=== PATIENT | male | born 1985 | race African-American/Black ===

== ENCOUNTER 2016-06-12 17:07 | Emergency (ER) | payer OTHER ==
[~2016-06-12] VITALS: Ht 172.7 cm; Wt 130.0 kg
[~2016-06-12 17:07] MED LIST: AMOX500T PO; HYDR10SO PO; ONDA4 PO; TIZA4 PO
[2016-06-12 17:13] VITALS: BP 156/94; PULSE 78; RESP 17; TEMP 97.9; O2SAT 98
[2016-06-12] MEDS ORDERED: ZANA4CAP PO (17:19)
[2016-06-12] MEDS ORDERED: HYDR-3533 PO (17:19)
--- NOTE | 2016-06-12 17:30 | PD ---
HPI Chief Complaint: Chest Pain Time Seen by Provider: 17:24 Travel History International Travel<30 days: No Contact w/Intl Traveler<30days: No Traveled to known affect area: No History of Present Illness HPI This 31-year-old male says he been having pain in his lower back. The pain is been going on for quite a while. He says that the last couple of days it seemed like pain shoots around the back of the front of the chest. Concerned that he might be having a heart attack. The pain is aggravated by deep breathing. He is not short of breath. His been coughing. 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 He is on Zanaflex and Lortab for his back pain. He's been having some anterior chest pain which is aggravated by movement PFSH Past Medical History Diminished Hearing: No Musculoskeletal: Yes (herniated disc) Tetanus Vaccination: > 5 Years Influenza Vaccination: No Past Surgical History Surgical History: No Previous Surgery Social History Alcohol Use: No Tobacco Use: No Substance Use: No Allergies-Medications (Allergen,Severity, Reaction): Coded Allergies: No Known Allergies (Unverified , 06/12/16) Reported Meds & Prescriptions Reported Meds & Active Scripts Active Reported Lortab (Hydrocodone-Acetaminophen) 5-325 Mg Tab Unknown Dose PO DIRECTED PRN Zanaflex (Tizanidine HCl) 4 Mg Cap 4 Mg PO Q8HR Review of Systems General / Constitutional: No: Fever, Chills Eyes: No: Diploplia, Blurred Vision HENT: No: Headaches, Vertigo Cardiovascular: Positive: Chest Pain or Discomfort Respiratory: Positive: Pleuritic Pain, No: Cough, Shortness of Breath Gastrointestinal: No: Vomiting, Diarrhea Genitourinary: No: Urgency Musculoskeletal: Positive: Pain Skin: No Rash Physical Exam Narrative GENERAL: Well-developed male SKIN: Warm and dry. HEAD: Atraumatic. Normocephalic. EYES: Pupils equal and round. No scleral icterus. No injection or drainage. ENT: No nasal bleeding or discharge. Mucous membranes pink and moist. NECK: Trachea midline. No JVD. CARDIOVASCULAR: Regular rate and rhythm. No murmur appreciated. RESPIRATORY: No accessory muscle use. Clear to auscultation. Breath sounds equal bilaterally. GASTROINTESTINAL: Abdomen soft, non-tender, nondistended. Hepatic and splenic margins not palpable. MUSCULOSKELETAL: No obvious deformities. No clubbing. No cyanosis. No edema. Some mild tenderness in the lower thoracic spine. He has tenderness of the left costochondral area NEUROLOGICAL: Awake and alert. No obvious cranial nerve deficits. Motor grossly within normal limits. Normal speech. PSYCHIATRIC: Appropriate mood and affect; insight and judgment normal. Data Data Last Documented VS Vital Signs Date Time Temp Pulse Resp B/P Pulse Ox O2 Delivery O2 Flow Rate FiO2 06/12/16 18:28 86 17 132/65 99 Room Air 06/12/16 17:13 97.9 Orders Electrocardiogram (06/12/16 17:24) Complete Blood Count With Diff (06/12/16 17:24) Basic Metabolic Panel (Bmp) (06/12/16 17:24) Troponin I (06/12/16 17:24) Chest, Single Ap (06/12/16 17:24) Spine, Thoracic-Ap/Lat/Sw(3vw) (06/12/16 17:24) Labs Laboratory Tests Test 06/12/16 17:55 White Blood Count 11.6 TH/MM3 Red Blood Count 4.63 MIL/MM3 Hemoglobin 14.0 GM/DL Hematocrit 42.1 % Mean Corpuscular Volume 90.9 FL Mean Corpuscular Hemoglobin 30.2 PG Mean Corpuscular Hemoglobin 33.2 % Concent Red Cell Distribution Width 12.3 % Platelet Count 399 TH/MM3 Mean Platelet Volume 7.3 FL Neutrophils (%) (Auto) 54.9 % Lymphocytes (%) (Auto) 32.7 % Monocytes (%) (Auto) 7.4 % Eosinophils (%) (Auto) 1.8 % Basophils (%) (Auto) 3.2 % Neutrophils # (Auto) 6.3 TH/MM3 Lymphocytes # (Auto) 3.8 TH/MM3 Monocytes # (Auto) 0.9 TH/MM3 Eosinophils # (Auto) 0.2 TH/MM3 Basophils # (Auto) 0.4 TH/MM3 CBC Comment DIFF FINAL Differential Comment Sodium Level 138 MEQ/L Potassium Level 3.8 MEQ/L Chloride Level 103 MEQ/L Carbon Dioxide Level 26.9 MEQ/L Anion Gap 8 MEQ/L Blood Urea Nitrogen 9 MG/DL Creatinine 0.97 MG/DL Estimat Glomerular Filtration 109 ML/MIN Rate Random Glucose 87 MG/DL Calcium Level 8.8 MG/DL Troponin I LESS THAN 0.02 NG/ML MDM Medical Decision Making Medical Screen Exam Complete: Yes Emergency Medical Condition: Yes Medical Record Reviewed: Yes Differential Diagnosis Differential includes coronary artery disease, chest wall pain Narrative Course EKG shows normal sinus rhythm. Troponin is normal. Chest x-ray and x-rays of the thoracic spine are normal. Patient is stable for discharge Diagnosis Primary Impression: Chest pain, musculoskeletal Additional Instructions: Continue Lortab and Zanaflex Disposition: 01 DISCHARGE HOME Condition: Stable Wiley Boudreaux MD Jun 12, 2016 17:30
[2016-06-12 18:07] LABS: AUTOMATED NEUTROPHIL # 6.3 TH/MM3 (1.8-7.7); BASOPHIL # 0.4 TH/MM3 (0-0.2); BASOPHIL % 3.2 % (0.0-2.0); EOSINOPHIL # 0.2 TH/MM3 (0-0.4); EOSINOPHIL % 1.8 % (0.0-4.0); HEMATOCRIT 42.1 % (39.0-51.0); HEMO FLAGS DIFF FINAL; LYMPH % 32.7 % (9.0-44.0); LYMPHOCYTE # 3.8 TH/MM3 (1.0-4.8); MEAN CELL VOLUME 90.9 FL (80.0-100.0); MEAN CORPUSCULAR HEMOGLOBIN 30.2 PG (27.0-34.0); MEAN CORPUSCULAR HGB CONC 33.2 % (32.0-36.0); MONO % 7.4 % (0.0-8.0); NEUT % 54.9 % (16.0-70.0); PLATELET COUNT 399 TH/MM3 (150-450); RED BLOOD COUNT 4.63 MIL/MM3 (4.50-5.90); RED CELL DISTRIBUTION WIDTH 12.3 % (11.6-17.2); WHITE BLOOD COUNT 11.6 TH/MM3 (4.0-11.0)
[2016-06-12 18:28] VITALS: BP 132/65; PULSE 86; RESP 17; O2SAT 99
[2016-06-12 18:28] LABS: CHLORIDE 103 MEQ/L (98-107); POTASSIUM 3.8 MEQ/L (3.5-5.1); SODIUM (NA) 138 MEQ/L (136-145)
--- NOTE | 2016-06-12 18:29 | RADHPO ---
EXAM DATE/TIME: 06/12/2016 17:32 [facility] COMPARISON: No previous studies available for comparison. INDICATIONS : Posterior chest pain. MEDICAL HISTORY : None. SURGICAL HISTORY : None. ENCOUNTER: Initial ACUITY: 1 day PAIN SCORE: 8/10 LOCATION: Bilateral posterior chest FINDINGS: A single view of the chest demonstrates the lungs to be symmetrically aerated without evidence of mas s, infiltrate or effusion. The cardiomediastinal contours are unremarkable. Osseous structures are intact. CONCLUSION: No acute disease. Jefe Ordaz MD on June 12, 2016 at 18:27 Board Certified Radiologist. This report was verified electronically.
[2016-06-12 18:31] LABS: ANION GAP 8 MEQ/L (5-15); BICARBONATE 26.9 MEQ/L (21.0-32.0); BLOOD UREA NITROGEN 9 MG/DL (7-18)
--- NOTE | 2016-06-12 18:32 | RADHPO ---
EXAM DATE/TIME: 06/12/2016 17:38 [facility] COMPARISON: SPINE THORACIC AP/LAT/SW (3VW), June 06, 2014, 15:27. INDICATIONS : Pain between scapulas irradiating into chest. MEDICAL HISTORY : None. SURGICAL HISTORY : None. ENCOUNTER: Initial ACUITY: 1 day PAIN SCORE: 8/10 LOCATION: Bilateral thoracic spine FINDINGS: There is normal alignment of the thoracic vertebral bodies. Vertebral body height is maintained. No evidence of fracture or subluxation. Pedicles are intact at all levels. The paravertebral reflecti ons are not thickened. CONCLUSION: No acute disease. Jefe Ordaz MD on June 12, 2016 at 18:30 Board Certified Radiologist. This report was verified electronically.
[2016-06-12 18:35] LABS: GLOMERULAR FILTRATION RATE 109 ML/MIN (>89)
[2016-06-12 19:20] VITALS: BP 177/92
--- NOTE | 2016-06-13 14:11 | EKG ---
Date Performed: 06/12/2016 Time Performed: 17:52:24 PTAGE: 31 years EKG: Sinus arrhythmia Septal T wave changes are nonspecific Borderline ECG NO PREVIOUS TRACING DOCTOR: Judson Haile Interpretating Date/Time 06/13/2016 14:09:54
== END 2016-06-12 19:28 | disposition home or self-care (01) ==
LOC: PHED 17:07
DX: R07.9 Chest pain, unspecified (principal); I49.8 Other specified cardiac arrhythmias; R05 Cough; M54.9 Dorsalgia, unspecified
CPT/HCPCS: 71010; 72072; 80048; 84484; 85025; 93005

== ENCOUNTER 2016-10-11 17:47 | Emergency (ER) | payer OTHER ==
[~2016-10-11] VITALS: Ht 170.2 cm; Wt 127.0 kg
[~2016-10-11 17:47] MED LIST changes: -AMOX500T PO; +HYDR-3533 PO; -HYDR10SO PO; -ONDA4 PO; -TIZA4 PO; +ZANA4CAP PO
[2016-10-11 17:49] VITALS: BP 194/97; PULSE 80; RESP 15; TEMP 97.8; O2SAT 98
[2016-10-11 18:02] VITALS: BP 151/97; PULSE 82; RESP 12; O2SAT 98
[2016-10-11] MEDS ORDERED: HYDR-3535 PO (18:05)
--- NOTE | 2016-10-11 18:33 | PD ---
HPI Chief Complaint: Chest Pain Time Seen by Provider: 18:33 Travel History International Travel<30 days: No Contact w/Intl Traveler<30days: No Traveled to known affect area: No History of Present Illness HPI 31-year-old male presents to the emergency department for evaluation of midsternal chest pain that started 3 days ago. Patient states the pain is intermittent. Patient states it is a cramping pain. Patient states he has chronic back pain. He states that when he gets a sharp pain in his back, it seems like pain shoots around the back to the front of the chest. He denies having this feeling before. Patient denies any vomiting. Fevers or chills. No hemoptysis. No recent travel or surgery. No leg edema. No history DVT/PE. Patient denies any cardiac history. Patient takes Lortab for chronic back pain, but no other medications. Patient does report the pain is worse with movement. He has no other complaints at this time. PFSH Past Medical History Diminished Hearing: No Musculoskeletal: Yes (herniated disc) Influenza Vaccination: No Past Surgical History Surgical History: No Previous Surgery Social History Alcohol Use: No Tobacco Use: No Substance Use: No Allergies-Medications (Allergen,Severity, Reaction): Coded Allergies: No Known Allergies (Unverified , 10/11/16) Reported Meds & Prescriptions Reported Meds & Active Scripts Active Reported Lortab (Hydrocodone-Acetaminophen) 10-325 Mg Tab 1 Tab PO Q6HR Review of Systems Except as stated in HPI: all other systems reviewed are Neg Physical Exam Narrative GENERAL: Well-nourished, well-developed male patient, ambulatory. Afebrile. SKIN: Focused skin assessment warm/dry. HEAD: Normocephalic. Atraumatic. EYES: No scleral icterus. No injection or drainage. NECK: Supple, trachea midline. No JVD or lymphadenopathy. CARDIOVASCULAR: Regular rate and rhythm without murmurs, gallops, or rubs. Bilateral radial and pedal pulses 2+. RESPIRATORY: Breath sounds equal bilaterally. No accessory muscle use. Lungs sounds are clear to auscultation. GASTROINTESTINAL: Abdomen soft, non-tender, nondistended. MUSCULOSKELETAL: No cyanosis, or edema. BACK: Nontender without obvious deformity. No CVA tenderness. Data Data Last Documented VS Vital Signs Date Time Temp Pulse Resp B/P Pulse Ox O2 Delivery O2 Flow Rate FiO2 5/14/17 19:26 83 16 170/79 99 10/11/16 18:02 Room Air 10/11/16 17:49 97.8 Orders Electrocardiogram (10/11/16 ) Basic Metabolic Panel (Bmp) (10/11/16 18:31) Ckmb (Isoenzyme) Profile (10/11/16 18:31) Complete Blood Count With Diff (10/11/16 18:31) Magnesium (Mg) (10/11/16 18:31) Troponin I (10/11/16 18:31) Chest, Single Ap (10/11/16 18:31) Ecg Monitoring (10/11/16 18:31) Bilateral Bp Monitoring (10/11/16 18:31) Iv Access Insert/Monitor (10/11/16 18:31) Oximetry (10/11/16 18:31) Oxygen Administration (10/11/16 18:31) Aspirin Chew (Aspirin Chew) (10/11/16 18:45) Sodium Chloride 0.9% Flush (Ns Flush) (10/11/16 18:45) Aspirin Chew (Aspirin Chew) (10/11/16 18:45) CKMB (10/11/16 18:38) CKMB% (10/11/16 18:38) Labs Laboratory Tests Test 10/11/16 18:38 White Blood Count 10.9 TH/MM3 Red Blood Count 4.47 MIL/MM3 Hemoglobin 13.9 GM/DL Hematocrit 41.0 % Mean Corpuscular Volume 91.7 FL Mean Corpuscular Hemoglobin 31.1 PG Mean Corpuscular Hemoglobin 33.9 % Concent Red Cell Distribution Width 13.0 % Platelet Count 372 TH/MM3 Mean Platelet Volume 7.6 FL Neutrophils (%) (Auto) 45.6 % Lymphocytes (%) (Auto) 42.0 % Monocytes (%) (Auto) 9.6 % Eosinophils (%) (Auto) 1.6 % Basophils (%) (Auto) 1.2 % Neutrophils # (Auto) 5.0 TH/MM3 Lymphocytes # (Auto) 4.6 TH/MM3 Monocytes # (Auto) 1.0 TH/MM3 Eosinophils # (Auto) 0.2 TH/MM3 Basophils # (Auto) 0.1 TH/MM3 CBC Comment DIFF FINAL Differential Comment Sodium Level 137 MEQ/L Potassium Level 3.7 MEQ/L Chloride Level 102 MEQ/L Carbon Dioxide Level 27.5 MEQ/L Anion Gap 8 MEQ/L Blood Urea Nitrogen 11 MG/DL Creatinine 0.99 MG/DL Estimat Glomerular Filtration 107 ML/MIN Rate Random Glucose 85 MG/DL Calcium Level 8.8 MG/DL Magnesium Level 2.3 MG/DL Total Creatine Kinase 283 U/L Creatine Kinase MB LESS THAN 0.5 NG/ML Troponin I LESS THAN 0.02 NG/ML MDM Medical Decision Making Medical Screen Exam Complete: Yes Emergency Medical Condition: Yes Medical Record Reviewed: Yes Interpretation(s) chest x-ray = CONCLUSION: Under aerated but clear. Differential Diagnosis Chest wall pain versus muscle strain versus muscle spasm versus ACS Narrative Course 31-year-old male presents to the emergency department for evaluation of midsternal chest pain that started 3 days ago and is intermittent. EKG shows sinus rhythm, heart rate 80, no acute ST changes. CBC, BMP, CK, troponin, magnesium, chest x-ray ordered and pending. Patient is given aspirin 324 mg by mouth. CBC shows no acute abnormality. BMP is unremarkable. CK is 283. Troponin is less than 0.02. Magnesium is 2.3. Chest x-ray is under aerated but clear. Symptoms are most consistent with musculoskeletal chest pain. However, the patient was seen in May with similar symptoms. I discussed with the patient and offered chest pain center admission for further evaluation of his chest pain. However, the patient has his 2 young children with him. He states he has nobody to watch them. He is chest pain-free and states he feels much better at this time. I instructed the patient that I would like him to stay, but he states that he cannot stay. He states that he will follow up outpatient with his primary care physician. He is to return for any acute worsening of symptoms. Patient verbalizes agreement and understanding. Diagnosis Primary Impression: Atypical chest pain Referrals: Jake Mooney MD call for appointment Deputy Jailer Primary Care Physician Patient Instructions: Chest Pain (ED), General Instructions Additional Instructions: I have offered admission to the chest pain center, but you are unable to stay. Please follow up with your primary care physician or a consumer loan manager for further evaluation. Return to the emergency department for any acute worsening of symptoms. Med/Other Pt SpecificInfo: No Change to Meds Disposition: 01 DISCHARGE HOME Condition: Stable Noel,Gladys [facility] October 11, 2016 18:33
[2016-10-11 18:44] LABS: BASOPHIL # 0.1 TH/MM3 (0-0.2); BASOPHIL % 1.2 % (0.0-2.0); EOSINOPHIL # 0.2 TH/MM3 (0-0.4); EOSINOPHIL % 1.6 % (0.0-4.0); HEMO FLAGS DIFF FINAL; LYMPHOCYTE # 4.6 TH/MM3 (1.0-4.8); MEAN CELL VOLUME 91.7 FL (80.0-100.0); MEAN CORPUSCULAR HEMOGLOBIN 31.1 PG (27.0-34.0); MEAN CORPUSCULAR HGB CONC 33.9 % (32.0-36.0); MONO % 9.6 % (0.0-8.0); NEUT % 45.6 % (16.0-70.0); PLATELET COUNT 372 TH/MM3 (150-450); RED BLOOD COUNT 4.47 MIL/MM3 (4.50-5.90); WHITE BLOOD COUNT 10.9 TH/MM3 (4.0-11.0)
[2016-10-11] MEDS ORDERED: SODIUM CHLORIDE 0.9% FLUSH 10 ML FLUSH IVF PRN (18:45)
[2016-10-11] MEDS ORDERED: ASPIRIN 81 MG CHEW TAB CHEW ONE (18:45)
[2016-10-11] MEDS ORDERED: ASPIRIN 81 MG CHEW TAB PO ONE (18:45)
--- NOTE | 2016-10-11 19:04 | RADRPT ---
EXAM DATE/TIME: 10/11/2016 18:57 [facility] COMPARISON: CHEST SINGLE AP, June 12, 2016, 17:32. INDICATIONS : Chest pain. MEDICAL HISTORY : None. SURGICAL HISTORY : None. ENCOUNTER: Initial ACUITY: 1 day PAIN SCORE: 0/10 LOCATION: Bilateral chest FINDINGS: The lungs are under aerated but clear. The heart and pulmonary vascularity are normal. The portion of the bony skeleton visualized is unremarkable. CONCLUSION: Under aerated but clear. Hiram Shrestha MD FACR on October 11, 2016 at 19:01 Board Certified Radiologist. This report was verified electronically.
[2016-10-11 19:26] VITALS: BP 170/79; PULSE 83; RESP 16; O2SAT 99
[2016-10-11 19:55] LABS: ANION GAP 8 MEQ/L (5-15); BICARBONATE 27.5 MEQ/L (21.0-32.0); BLOOD UREA NITROGEN 11 MG/DL (7-18); CHLORIDE 102 MEQ/L (98-107); GLOMERULAR FILTRATION RATE 107 ML/MIN (>89); MAGNESIUM 2.3 MG/DL (1.5-2.5); POTASSIUM 3.7 MEQ/L (3.5-5.1); SODIUM (NA) 137 MEQ/L (136-145)
[2016-10-11 20:00] LABS: CREATINE KINASE 283 U/L (39-308)
[2016-10-11 20:12] LABS: CKMB LESS THAN 0.5 NG/ML (0.5-3.6)
--- NOTE | 2016-10-12 14:45 | EKG ---
Date Performed: 10/11/2016 Time Performed: 18:00:31 PTAGE: 31 years EKG: Sinus rhythm NORMAL ECG Compared to prior tracing no significant change PREVIOUS TRACING : 06/12/2016 17.52 DOCTOR: Flynn Alford Interpretating Date/Time 10/12/2016 14:41:06
== END 2016-10-11 20:38 | disposition home or self-care (01) ==
LOC: NEPC 17:47
DX: R07.89 Other chest pain (principal)
CPT/HCPCS: 71010; 80048; 82550; 82552; 83735; 84484; 85025; 93005

== ENCOUNTER 2016-11-05 22:05 | Emergency (ER) | payer OTHER ==
[~2016-11-05] VITALS: Ht 172.7 cm; Wt 140.0 kg
[~2016-11-05 22:05] MED LIST changes: -HYDR-3533 PO; +HYDR-3535 PO; -ZANA4CAP PO
[2016-11-05 22:07] VITALS: BP 180/110; PULSE 119; RESP 20; TEMP 98.6; O2SAT 94
[2016-11-05] MEDS ORDERED: ASPIRIN 325 MG TAB PO ONE (22:30)
--- NOTE | 2016-11-05 22:38 | RADRPT ---
EXAM DATE/TIME: 11/05/2016 22:27 [facility] COMPARISON: CHEST SINGLE AP, October 11, 2016, 18:57. INDICATIONS : Chest pain MEDICAL HISTORY : None. SURGICAL HISTORY : None. ENCOUNTER: Initial ACUITY: 2 days PAIN SCORE: 9/10 LOCATION: Bilateral chest FINDINGS: A single view of the chest demonstrates the lungs to be symmetrically aerated without evidence of mas s, infiltrate or effusion. The cardiomediastinal contours are unremarkable. Osseous structures are intact. CONCLUSION: No acute disease. Jefe Quispe MD on November 05, 2016 at 22:36 Board Certified Radiologist. This report was verified electronically.
--- NOTE | 2016-11-05 22:40 | PD ---
HPI Chief Complaint: Pain: Acute or Chronic Time Seen by Provider: 22:36 Travel History International Travel<30 days: No Contact w/Intl Traveler<30days: No Traveled to known affect area: No History of Present Illness HPI 31-year-old male that presents to the ED for evaluation of left-sided chest pain. Per patient he believes that this is related more to his back to his chest. 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 Per patient when to have surgery on it. Per patient he takes Lortab chronically. Per patient she's been having some discomfort on his mid back since yesterday and today when he was driving with his children he developed a severe left-sided chest pain. Per patient the pain is debilitating causing him shortness of breath. He denies any injury. No falls. No allergies to medication. He did took his Lortab today. He denies any cardiac history. Patient denies any other symptoms. Per patient the pain is severe 10 out of 10. States mainly on the left side of the chest. Denies any nausea or vomiting abdominal pain. No urinary or bowel movement issues. PFSH Past Medical History Diminished Hearing: No Musculoskeletal: Yes (herniated disc) Tetanus Vaccination: < 5 Years Influenza Vaccination: No Past Surgical History Surgical History: No Previous Surgery Social History Alcohol Use: No Tobacco Use: No Substance Use: No Allergies-Medications (Allergen,Severity, Reaction): Coded Allergies: No Known Allergies (Unverified , 11/05/16) Reported Meds & Prescriptions Reported Meds & Active Scripts Active Reported Lortab (Hydrocodone-Acetaminophen) 10-325 Mg Tab 1 Tab PO Q6HR Review of Systems Except as stated in HPI: all other systems reviewed are Neg Physical Exam Narrative GENERAL: SKIN: Warm and dry. HEAD: Atraumatic. Normocephalic. EYES: Pupils equal and round. No scleral icterus. No injection or drainage. ENT: No nasal bleeding or discharge. Mucous membranes pink and moist. Tongue is midline. No uvula deviation. NECK: Trachea midline. No JVD. CARDIOVASCULAR: Regular rate and rhythm. No murmurs, S3, S4. Minimal discomfort noted with touch. RESPIRATORY: No accessory muscle use. Clear to auscultation. Breath sounds equal bilaterally. GASTROINTESTINAL: Abdomen soft, non-tender, nondistended. Hepatic and splenic margins not palpable. MUSCULOSKELETAL: Extremities without clubbing, cyanosis, or edema. No obvious deformities. Full range of motion of the upper and lower extremities bilaterally. 2+ pulses bilaterally. No lumbar, thoracic, cervical spine tenderness to palpation noted on exam. NEUROLOGICAL: Awake and alert. No obvious cranial nerve deficits. Motor grossly within normal limits. Five out of 5 muscle strength in the arms and legs. Normal speech. PSYCHIATRIC: Appropriate mood and affect; insight and judgment normal. Data Data Last Documented VS Vital Signs Date Time Temp Pulse Resp B/P Pulse Ox O2 Delivery O2 Flow Rate FiO2 11/05/16 22:07 98.6 119 20 180/110 94 Orders Electrocardiogram (11/05/16 22:17) Basic Metabolic Panel (Bmp) (11/05/16 22:17) Ckmb (Isoenzyme) Profile (11/05/16 22:17) Complete Blood Count With Diff (11/05/16 22:17) D-Dimer (11/05/16 22:17) Magnesium (Mg) (11/05/16 22:17) Prothrombin Time / Inr (Pt) (11/05/16 22:17) Act Partial Throm Time (Ptt) (11/05/16 22:17) Troponin I (11/05/16 22:17) Chest, Single Ap (11/05/16 22:17) Ecg Monitoring (11/05/16 22:17) Bilateral Bp Monitoring (11/05/16 22:17) Iv Access Insert/Monitor (11/05/16 22:17) Oximetry (11/05/16 22:17) Oxygen Administration (11/05/16 22:17) Aspirin (Aspirin) (11/05/16 22:30) Morphine Inj (Morphine Inj) (11/05/16 22:45) Ondansetron Inj (Zofran Inj) (11/05/16 22:45) MDM Medical Decision Making Medical Screen Exam Complete: Yes Emergency Medical Condition: Yes Medical Record Reviewed: Yes Differential Diagnosis ACS versus a typical chest pain versus chest pain versus chronic versus acute on chronic pain versus referred pain. Narrative Course 31-year-old male that presents to the ED for evaluation of left-sided chest pain. Patient was properly examined and was found to have signs and symptoms concerning for left-sided chest pain. Unclear etiology this time. Does appear to be more muscular. Patient has a history of this in the past. He has been here twice for evaluation of a typical chest pain. At this time a recommend labs and imaging to make sure patient is having acute disease. Patient was given IV pain medications. Case was signed to my attending pending labs and imaging results. Abiel Tanner Nov 05, 2016 22:40
[2016-11-05] MEDS ORDERED: ONDANSETRON HCL 4 MG/2 ML VIAL IV PUSH ONE (22:45)
[2016-11-05] MEDS ORDERED: MORPHINE SULFATE 4 MG/ML INJ IV PUSH ONE (22:45)
[2016-11-05 22:50] LABS: AUTOMATED NEUTROPHIL # 7.6 TH/MM3 (1.8-7.7); BASOPHIL # 0.1 TH/MM3 (0-0.2); BASOPHIL % 0.9 % (0.0-2.0); EOSINOPHIL # 0.1 TH/MM3 (0-0.4); EOSINOPHIL % 0.9 % (0.0-4.0); HEMATOCRIT 42.5 % (39.0-51.0); LYMPH % 35.9 % (9.0-44.0); LYMPHOCYTE # 5.2 TH/MM3 (1.0-4.8); MEAN CELL VOLUME 90.4 FL (80.0-100.0); MEAN CORPUSCULAR HEMOGLOBIN 31.5 PG (27.0-34.0); MEAN CORPUSCULAR HGB CONC 34.9 % (32.0-36.0); MONO % 9.5 % (0.0-8.0); NEUT % 52.8 % (16.0-70.0); PLATELET COUNT 396 TH/MM3 (150-450); RED BLOOD COUNT 4.71 MIL/MM3 (4.50-5.90); RED CELL DISTRIBUTION WIDTH 13.3 % (11.6-17.2); WHITE BLOOD COUNT 14.4 TH/MM3 (4.0-11.0)
[2016-11-05 22:53] LABS: HEMO FLAGS AUTO DIFF
[2016-11-05 23:06] LABS: ANION GAP 11 MEQ/L (5-15); BICARBONATE 25.4 MEQ/L (21.0-32.0); BLOOD UREA NITROGEN 10 MG/DL (7-18); CHLORIDE 101 MEQ/L (98-107); CREATINE KINASE 252 U/L (39-308); GLOMERULAR FILTRATION RATE 93 ML/MIN (>89); MAGNESIUM 2.2 MG/DL (1.5-2.5); POTASSIUM 4.1 MEQ/L (3.5-5.1); SODIUM (NA) 137 MEQ/L (136-145)
[2016-11-05 23:11] LABS: APTT (PATIENT) 29.7 SEC (24.3-30.1); PROTHROMBIN TIME - PATIENT 11.1 SEC (9.8-11.6)
[2016-11-05 23:19] LABS: CKMB LESS THAN 0.5 NG/ML (0.5-3.6)
[2016-11-05 23:22] LABS: EOSINOPHILS 1 % (0-4); NEUTROPHIL # MANUAL DIFF 7.2 TH/MM3 (1.8-7.7); POLYS (SEG NEUTROPHILS) 50 % (16-70); WBC DIFF SAMPLE 100
[2016-11-05 23:23] LABS: PLATELET ESTIMATE SMEAR NORMAL (NORMAL); PLATELET MORPHOLOGY NORMAL (NORMAL)
[2016-11-05 23:24] LABS: SCAN/DIFF FINAL DIFF MANUAL
[2016-11-05 23:44] VITALS: BP 197/88; PULSE 92; RESP 14; O2SAT 99
--- NOTE | 2016-11-06 00:07 | PD ---
Data Data Last Documented VS Vital Signs Date Time Temp Pulse Resp B/P Pulse Ox O2 Delivery O2 Flow Rate FiO2 11/05/16 23:44 92 14 197/88 99 Room Air 11/05/16 22:07 98.6 Orders Electrocardiogram (11/05/16 22:17) Basic Metabolic Panel (Bmp) (11/05/16 22:17) Ckmb (Isoenzyme) Profile (11/05/16 22:17) Complete Blood Count With Diff (11/05/16 22:17) D-Dimer (11/05/16 22:17) Magnesium (Mg) (11/05/16 22:17) Prothrombin Time / Inr (Pt) (11/05/16 22:17) Act Partial Throm Time (Ptt) (11/05/16 22:17) Troponin I (11/05/16 22:17) Chest, Single Ap (11/05/16 22:17) Ecg Monitoring (11/05/16 22:17) Bilateral Bp Monitoring (11/05/16 22:17) Iv Access Insert/Monitor (11/05/16 22:17) Oximetry (11/05/16 22:17) Oxygen Administration (11/05/16 22:17) Aspirin (Aspirin) (11/05/16 22:30) Morphine Inj (Morphine Inj) (11/05/16 22:45) Ondansetron Inj (Zofran Inj) (11/05/16 22:45) CKMB (11/05/16 22:35) CKMB% (11/05/16 22:35) Labs Laboratory Tests Test 11/05/16 22:35 White Blood Count 14.4 TH/MM3 Red Blood Count 4.71 MIL/MM3 Hemoglobin 14.8 GM/DL Hematocrit 42.5 % Mean Corpuscular Volume 90.4 FL Mean Corpuscular Hemoglobin 31.5 PG Mean Corpuscular Hemoglobin 34.9 % Concent Red Cell Distribution Width 13.3 % Platelet Count 396 TH/MM3 Mean Platelet Volume 7.2 FL Neutrophils (%) (Auto) 52.8 % Lymphocytes (%) (Auto) 35.9 % Monocytes (%) (Auto) 9.5 % Eosinophils (%) (Auto) 0.9 % Basophils (%) (Auto) 0.9 % Neutrophils # (Auto) 7.6 TH/MM3 Lymphocytes # (Auto) 5.2 TH/MM3 Monocytes # (Auto) 1.4 TH/MM3 Eosinophils # (Auto) 0.1 TH/MM3 Basophils # (Auto) 0.1 TH/MM3 CBC Comment AUTO DIFF Differential Total Cells 100 Counted Neutrophils % (Manual) 50 % Lymphocytes % 44 % Monocytes % 5 % Eosinophils % 1 % Neutrophils # (Manual) 7.2 TH/MM3 Differential Comment FINAL DIFF MANUAL Platelet Estimate NORMAL Platelet Morphology Comment NORMAL Red Cell Morphology Comment NORMAL Prothrombin Time 11.1 SEC Prothromb Time International 1.0 RATIO Ratio Activated Partial 29.7 SEC Thromboplast Time D-Dimer Quantitative (PE/DVT) LESS THAN 0.19 MG/L FEU Sodium Level 137 MEQ/L Potassium Level 4.1 MEQ/L Chloride Level 101 MEQ/L Carbon Dioxide Level 25.4 MEQ/L Anion Gap 11 MEQ/L Blood Urea Nitrogen 10 MG/DL Creatinine 1.12 MG/DL Estimat Glomerular Filtration 93 ML/MIN Rate Random Glucose 95 MG/DL Calcium Level 9.0 MG/DL Magnesium Level 2.2 MG/DL Total Creatine Kinase 252 U/L Creatine Kinase MB LESS THAN 0.5 NG/ML Troponin I LESS THAN 0.02 NG/ML [facility] Supervised Visit with MALISSA: Yes Interpretation(s) EKG shows sinus tachycardia rate of 116, normal axis normal R-wave progression. No concerning ST segment changes or T-wave abnormalities. Some normal EKG except for rate. Narrative Course Care assumed from Abiel Tanner [facility] at 2300. This is a 31-year-old male presents with atypical chest pain. Right-sided. On my exam patient states that his pain stems from chronic herniated disks in his thoracic and lumbar back. He states occasionally it spasms on him and causes him to feel chest pain. He denies any shortness of breath. Denies a smoking history denies any cocaine use. He is slightly overweight and seems to be his only risk factor. Initial workup including EKG troponin and d-dimer are negative. He is feeling much more comfortable on second evaluation his tachycardia has resolved without further intervention. He wishes to go home. Discussed he needs to follow up with his primary care physician of record for these iliac clinic and discussed return to ED criteria. Diagnosis Primary Impression: Atypical chest pain Referrals: [facility] Scripts Cyclobenzaprine (Flexeril)10 Mg Tab10 Mg PO TID #20 TAB Ref 0 Prov:Abdulaziz Starr MD 11/06/16 Disposition: 01 DISCHARGE HOME Condition: Stable Abdulaziz Starr MD Nov 06, 2016 00:07
[2016-11-06] MEDS ORDERED: CYCL1TAB29 PO (00:09)
--- NOTE | 2016-11-06 17:37 | EKG ---
Date Performed: 11/05/2016 Time Performed: 22:07:54 PTAGE: 31 years EKG: SINUS TACHYCARDIA POSSIBLE LEFT ATRIAL ENLARGEMENT NONSPECIFIC T-WAVE ABNORMALITY ABNORMAL RHYTHM ECG PREVIOUS TRACING : 10/11/2016 18.00 Compared to the previous tracing rate faster DOCTOR: Gloria Magaña Interpretating Date/Time 11/06/2016 17:36:09
== END 2016-11-06 00:36 | disposition home or self-care (01) ==
LOC: NEPC 22:05
DX: R07.89 Other chest pain (principal); M54.6 Pain in thoracic spine; R06.02 Shortness of breath; R00.0 Tachycardia, unspecified; R94.31 Abnormal electrocardiogram [ECG] [EKG]; Z87.39 Personal history of other diseases of the musculoskeletal system and connective tissue
CPT/HCPCS: 71010; 80048; 82550; 82552; 83735; 84484; 85007; 85027; 85379; 85610; 85730; 93005; 96374; 99285; J2405

== ENCOUNTER 2016-11-06 14:42 | Emergency (ER) | payer OTHER ==
[~2016-11-06 14:42] MED LIST changes: +CYCL1TAB29 PO
[2016-11-06 14:54] VITALS: BP 153/97; PULSE 94; RESP 18; TEMP 97.5; O2SAT 97
--- NOTE | 2016-11-06 15:13 | PD ---
HPI Chief Complaint: Chest Pain Time Seen by Provider: 15:01 Travel History International Travel<30 days: No Contact w/Intl Traveler<30days: No Traveled to known affect area: No History of Present Illness HPI Is a 31-year-old man who presents to the emergency department cleaning of chest pain. He's had multiple recent admissions for atypical chest pain. He's had workups including labs d-dimer is x-rays EKGs have all been unremarkable. He was seen last night for the same. He comes back in today saying he still is chest pain. He did fill the Lortab and just started taking it. Patient initially denied any medical history except for previous back injuries and "the cancer or whenever you call it" which he then clarified to mean HIV. He's not been on any treatment. History Past Medical History Narrative Medical HIV Past Surgical History Surgical History: No Previous Surgery Social History Alcohol Use: No Tobacco Use: No Allergies-Medications (Allergen,Severity, Reaction): Coded Allergies: No Known Allergies (Unverified , 11/06/16) Reported Meds & Prescriptions Reported Meds & Active Scripts Active Flexeril (Cyclobenzaprine HCl) 10 Mg Tab 10 Mg PO TID Reported Lortab (Hydrocodone-Acetaminophen) 10-325 Mg Tab 1 Tab PO Q6HR Review of Systems Except as stated in HPI: all other systems reviewed are Neg Physical Exam Narrative GENERAL: Well-appearing 31-year-old man, no acute distress. SKIN: Focused skin assessment warm/dry. HEAD: Atraumatic. Normocephalic. CARDIOVASCULAR: Regular rate and rhythm. No murmur appreciated. RESPIRATORY: No accessory muscle use. Clear to auscultation. Breath sounds equal bilaterally. GASTROINTESTINAL: Abdomen soft, non-tender, nondistended. Hepatic and splenic margins not palpable. MUSCULOSKELETAL: No obvious deformities. No edema. NEUROLOGICAL: Awake and alert. No obvious cranial nerve deficits. Motor grossly within normal limits. Normal speech. PSYCHIATRIC: Appropriate mood and affect; insight and judgment normal. Data Data Last Documented VS Vital Signs Date Time Temp Pulse Resp B/P Pulse Ox O2 Delivery O2 Flow Rate FiO2 11/06/16 14:56 92 11/06/16 14:54 97.5 18 153/97 97 Orders Electrocardiogram (11/06/16 14:40) MDM Medical Decision Making Medical Screen Exam Complete: Yes Emergency Medical Condition: Yes Differential Diagnosis Anxiety, weakness, esophagitis, pneumonia, other Narrative Course Medical decision making Is a 31-year-old man, frequent visits for atypical chest pain. Also endorses a history of untreated HIV today. Does not previously documented. Patient really talked around it before finally coming out with this diagnosis. He's never been seen or treated for. He does see a neurologist for his back. He endorses a lot of anxiety and stress. I think this is likely stress-induced. His previous absolute lymphocyte count within normal and so I don't think he has marked leukopenia. He needs follow-up with an HIV specialist. Symptoms don 't really seem typical for esophagitis. Diagnosis Primary Impression: Atypical chest pain Additional Instructions: Continue current medications. Follow-up with your primary physician for further evaluation and treatment of your HIV, and for your chest pain. Return to the emergency department for any new or worsening symptoms. Med/Other Pt SpecificInfo: No Change to Meds Disposition: 01 DISCHARGE HOME Condition: Stable Geovanni Carrillo MD Nov 06, 2016 15:13
[2016-11-06] MEDS ORDERED: KETOROLAC TROMETHAMINE 60 MG/2 ML (IM) VIAL IM ONE (15:15)
--- NOTE | 2016-11-08 10:09 | EKG ---
Date Performed: 11/06/2016 Time Performed: 14:40:16 PTAGE: 31 years EKG: Sinus rhythm . Normal ECG PREVIOUS TRACING : 11/05/2016 22.07 DOCTOR: Geovanni Askew Interpretating Date/Time 11/08/2016 09:53:15
== END 2016-11-06 15:34 | disposition home or self-care (01) ==
LOC: PHED 14:42
DX: R07.89 Other chest pain (principal)
CPT/HCPCS: 93005; 99283

== ENCOUNTER 2017-02-09 21:19 | Emergency (ER) | payer OTHER | END 2017-02-09 22:00 | disposition left against medical advice (07) | LOC: PHED 21:19 | DX: Z53.9 Procedure and treatment not carried out, unspecified reason (principal) | CPT/HCPCS: 99281 ==

== ENCOUNTER 2017-03-15 16:10 | Emergency (ER) | payer OTHER ==
[~2017-03-15] VITALS: Ht 172.7 cm; Wt 149.6 kg
[2017-03-15 16:22] VITALS: BP 167/77; PULSE 67; RESP 18; TEMP 98.3; O2SAT 99
[2017-03-15] MEDS ORDERED: CEPH-460 PO (16:43)
[2017-03-15] MEDS ORDERED: TETANUS/DIPHTHERIA TOXOID ADULT 0.5 ML VIAL IM ONE (16:45)
--- NOTE | 2017-03-15 16:48 | PD ---
HPI Chief Complaint: Skin Problem Time Seen by Provider: 16:37 Travel History International Travel<30 days: No Contact w/Intl Traveler<30days: No Traveled to known affect area: No History of Present Illness HPI 31-year-old male that presents to the ED for evaluation of needing tetanus booster. Patient was seen by his doctor today for evaluation of a rash to his face that is slightly painful and itchy. Per patient he was an old razor that is wilmar and the recommended that he comes here to get this as he has not had a tetanus booster in well. Patient states that the rash he noticed today. He uses about 3 days ago. He was given any medications. He takes chronic pain medication for back problems. No allergies to medication. No chest pain or shortness of breath. Other medical issues at this time. Pain per patient is 6 out of 10. PFSH Past Medical History Diminished Hearing: No Musculoskeletal: Yes (herniated disc) Social History Alcohol Use: No Tobacco Use: No Substance Use: No Allergies-Medications (Allergen,Severity, Reaction): Coded Allergies: No Known Allergies (Unverified , 03/15/17) Reported Meds & Prescriptions Reported Meds & Active Scripts Active Keflex (Cephalexin) 500 Mg Cap 500 Mg PO Q8H 10 Days Reported Lortab (Hydrocodone-Acetaminophen) 10-325 Mg Tab 1 Tab PO Q6HR Review of Systems Except as stated in HPI: all other systems reviewed are Neg Physical Exam Narrative GENERAL: SKIN: Warm and dry. Patient has small follicular rash most the follicles of the heard. Appears to be almost like pustules. Slightly painful but not erythematous. HEAD: Atraumatic. Normocephalic. EYES: Pupils equal and round. No scleral icterus. No injection or drainage. ENT: No nasal bleeding or discharge. Mucous membranes pink and moist. NECK: Trachea midline. No JVD. CARDIOVASCULAR: Regular rate and rhythm. RESPIRATORY: No accessory muscle use. Clear to auscultation. Breath sounds equal bilaterally. GASTROINTESTINAL: Abdomen soft, non-tender, nondistended. Hepatic and splenic margins not palpable. MUSCULOSKELETAL: Extremities without clubbing, cyanosis, or edema. No obvious deformities. NEUROLOGICAL: Awake and alert. No obvious cranial nerve deficits. Motor grossly within normal limits. Five out of 5 muscle strength in the arms and legs. Normal speech. PSYCHIATRIC: Appropriate mood and affect; insight and judgment normal. Data Data Last Documented VS Vital Signs Date Time Temp Pulse Resp B/P (MAP) Pulse Ox O2 Delivery O2 Flow Rate FiO2 03/15/17 16:22 98.3 67 18 167/77 (107) 99 Orders Orders Tetanus/Diphtheria Tox Adult (Tetanus/Di (03/15/17 16:45) Ed Discharge Order (03/15/17 16:42) MDM Medical Decision Making Medical Screen Exam Complete: Yes Emergency Medical Condition: Yes Medical Record Reviewed: Yes Differential Diagnosis Folliculitis versus medication refill versus cellulitis Narrative Course 31-year-old male that presents to the ED for evaluation of rash needing tetanus booster. Patient was properly examined and was found to have signs and symptoms consistent appears to be folliculitis. We'll treat with Keflex. Patient was given tetanus booster here. Follow with PCP. See ED worsening symptoms. Diagnosis Primary Impression: Folliculitis Patient Instructions: General Instructions Departure Forms: Tests/Procedures Additional Instructions: Take medication as prescribed. Follow your PCP as needed. See ED worsening symptoms. Do not shave for at least 2 weeks until better. Med/Other Pt SpecificInfo: Prescription(s) given Scripts Cephalexin (Keflex) 500 Mg Cap 500 MG PO Q8H for Infection for 10 Days, #30 CAP 0 Refills Prov: Abdulaziz Starr MD 03/15/17 Disposition: 01 DISCHARGE HOME Condition: Stable Abiel Tanner Mar 15, 2017 16:47
== END 2017-03-15 16:57 | disposition home or self-care (01) ==
LOC: PHED 16:10 → PHEFT 16:57
DX: L73.9 Follicular disorder, unspecified (principal); Z23 Encounter for immunization
CPT/HCPCS: 90471; 90714

== ENCOUNTER 2017-04-13 16:40 | Emergency (ER) | payer OTHER ==
[~2017-04-13] VITALS: Ht 172.7 cm; Wt 149.0 kg
[~2017-04-13 16:40] MED LIST changes: +CEPH-460 PO; -CYCL1TAB29 PO
[2017-04-13 16:58] VITALS: BP 156/83; PULSE 60; RESP 16; TEMP 98.1; O2SAT 98
[2017-04-13] MEDS ORDERED: HYDR-3583 PO (18:11)
--- NOTE | 2017-04-13 18:28 | PD ---
HPI Chief Complaint: GI Complaint Time Seen by Provider: 18:03 Travel History International Travel<30 days: No Contact w/Intl Traveler<30days: No Traveled to known affect area: No History of Present Illness HPI 31-year-old male states that he feels like he is been getting more gas over the past couple of months and when he goes home and relaxes it will smell. He wants to get this checked out. He denies any abdominal pain, fever or other concurrent complaints other than 2 years of chronic back pain after an accident. He denies any new trauma. He states he currently doesn't have a primary doctor. PFSH Past Medical History Diminished Hearing: No Musculoskeletal: Yes (herniated disc, chronic back pain) Influenza Vaccination: No Past Surgical History Surgical History: No Previous Surgery Social History Alcohol Use: No Tobacco Use: Yes (occassionally, not daily) Substance Use: No Allergies-Medications (Allergen,Severity, Reaction): Coded Allergies: No Known Allergies (Unverified Adverse Reaction, Unknown, 04/13/17) Reported Meds & Prescriptions Reported Meds & Active Scripts Active Reported Hydrocodone-Acetaminophen 10-325 mg Tab 1 Tab PO Q6H PRN Review of Systems Except as stated in HPI: all other systems reviewed are Neg Physical Exam Narrative GENERAL: Well-nourished, well-developed patient. SKIN: Warm and dry. HEAD: Normocephalic and atraumatic. EYES: No injection or drainage. ENT: No nasal drainage noted. NECK: Supple, trachea midline. CARDIOVASCULAR: Regular rate and rhythm RESPIRATORY: Breath sounds equal bilaterally. No accessory muscle use. GASTROINTESTINAL: Abdomen soft, non-tender, nondistended. EXTREMITIES: No edema. BACK: Nontender without obvious deformity in midline, no CVA tenderness, mild mid lumbar paraspinal tenderness. NEUROLOGICAL: Awake and alert. Motor and sensory grossly within normal limits. Normal speech. Data Data Last Documented VS Vital Signs Date Time Temp Pulse Resp B/P (MAP) Pulse Ox O2 Delivery O2 Flow Rate FiO2 04/13/17 16:58 98.1 60 16 156/83 (107) 98 Orders Orders Ed Discharge Order (04/13/17 18:24) MDM Medical Decision Making Medical Screen Exam Complete: Yes Emergency Medical Condition: No Medical Record Reviewed: Yes (past history confirmed) Differential Diagnosis Musculoskeletal, chronic pain,gas.... Narrative Course no indication for emergent testing given current complaint. Vitals are stable. Advised to set up a primary care and Tylenol as needed Diagnosis Primary Impression: Back pain Qualified Codes: M54.5 - Low back pain; G89.29 - Other chronic pain Patient Instructions: General Instructions Additional Instructions: tylenol as needed, set up a primary, return with any emergent need, keep blood pressure log Med/Other Pt SpecificInfo: No Change to Meds Disposition: 01 DISCHARGE HOME Condition: Stable Leela Phillips MD Apr 13, 2017 18:28
== END 2017-04-13 18:34 | disposition home or self-care (01) ==
LOC: PHED 16:40
DX: M54.5 Low back pain (principal); G89.29 Other chronic pain; Z72.0 Tobacco use
CPT/HCPCS: 99282

== ENCOUNTER 2017-04-25 13:26 | Emergency (ER) | payer OTHER ==
[~2017-04-25] VITALS: Ht 170.2 cm; Wt 148.0 kg
[~2017-04-25 13:26] MED LIST changes: -CEPH-460 PO; -HYDR-3535 PO; +HYDR-3583 PO
[2017-04-25 14:24] VITALS: BP 130/79; PULSE 72; RESP 16; TEMP 98.3; O2SAT 99
--- NOTE | 2017-04-25 16:30 | PD ---
HPI Chief Complaint: Skin Problem Time Seen by Provider: 15:43 Travel History International Travel<30 days: No Contact w/Intl Traveler<30days: No Traveled to known affect area: No History of Present Illness HPI 32-year-old male presents to the emergency room requesting a prescription for clotrimazole. Patient states he has had in the past and is developing tinea on his chest. States it is not currently itchy but he wants to catch it before it gets bad. Patient states he needs at 2.5% because someone told him a long time ago that it worked better than the [id number]-[id number]-opxygpt prescription. No other medical complaints. History Social History Alcohol Use: No Tobacco Use: Yes (occassionally, not daily) Allergies-Medications (Allergen,Severity, Reaction): Coded Allergies: No Known Allergies (Unverified Adverse Reaction, Unknown, 04/25/17) Reported Meds & Prescriptions Reported Meds & Active Scripts Active Reported Hydrocodone-Acetaminophen 10-325 mg Tab 1 Tab PO Q6H PRN Review of Systems Except as stated in HPI: all other systems reviewed are Neg Physical Exam Narrative GENERAL: Well-nourished, elderly obese male in no acute distress. Afebrile. Ambulatory. SKIN: Focused skin assessment warm/dry. There is a 4 mm plaque with central clearing on the abdomen. No excoriations. HEAD: Normocephalic. EYES: No scleral icterus. No injection or drainage. NECK: Supple, trachea midline. No JVD or lymphadenopathy. CARDIOVASCULAR: Regular rate and rhythm without murmurs, gallops, or rubs. RESPIRATORY: Breath sounds equal bilaterally. No accessory muscle use. Data Data Last Documented VS Vital Signs Date Time Temp Pulse Resp B/P (MAP) Pulse Ox O2 Delivery O2 Flow Rate FiO2 04/25/17 14:24 98.3 72 16 130/79 (96) 99 MDM Medical Screen Exam Complete: Yes Emergency Medical Condition: No Differential Diagnosis Medication request Narrative Course 32-year-old male presents to the emergency room requesting 2.5% clotrimazole. When told he can purchase this medication [id number], patient stated that he needed 2.5% because someone told him a long time ago that it works better. Physical exam is unremarkable. There is no evidence of tinea at this time. There is a 4 mm plaque on his abdomen that is not itchy. There are no urgent or emergent medical conditions at this time. A medical screening exam was performed: At the time of evaluation the presenting medical condition was determined not to be of an emergent nature. The patient was given the option of receiving additional care, but declined. Patient was given options for additional community resources from which to obtain care. The Patient Has Been advised to seek medical attention for their presenting complaint. The patient has been advised to return to the ER at any time if an emergent condition develops. Primary Impression: Encounter for medical screening examination Disposition: 01 DISCHARGE HOME Condition: Stable Rosetta Alcazar Apr 25, 2017 16:30
== END 2017-04-25 16:20 | disposition left against medical advice (07) ==
LOC: PHED 13:26 → PHEFT 16:20
DX: L98.8 Other specified disorders of the skin and subcutaneous tissue (principal)
CPT/HCPCS: 99281

== ENCOUNTER 2017-05-01 20:42 | Emergency (ER) | payer OTHER ==
[~2017-05-01] VITALS: Ht 172.7 cm; Wt 148.0 kg
[2017-05-01 20:44] VITALS: BP 174/94; PULSE 94; RESP 18; TEMP 98; O2SAT 100
--- NOTE | 2017-05-01 21:46 | RADRPT ---
EXAM DATE/TIME: 05/01/2017 21:20 [facility] COMPARISON: No previous studies available for comparison. INDICATIONS : Patient complains of chest pain, cough, and congestion. MEDICAL HISTORY : None. SURGICAL HISTORY : None. ENCOUNTER: Initial ACUITY: 3 days PAIN SCORE: 4/10 LOCATION: chest FINDINGS: PA and lateral views of the chest demonstrate the lungs to be symmetrically aerated without evidence of mass, infiltrate or effusion. The cardiomediastinal contours are unremarkable. Osseous structure s are intact. CONCLUSION: No evidence of acute cardiopulmonary disease. Jefe Shearer MD on May 01, 2017 at 21:44 Board Certified Radiologist. This report was verified electronically.
--- NOTE | 2017-05-01 22:04 | PD ---
HPI . Cough Chief Complaint: Cold / Flu Symptoms Time Seen by Provider: 21:11 Travel History International Travel<30 days: No Contact w/Intl Traveler<30days: No Traveled to known affect area: No History of Present Illness HPI This patient presents with a chief complaint of a cough. Onset was 3 days ago. He reports nasal congestion, chest congestion, wheezing, headache and subjective fever. Symptoms have been persistent. No modifying factors. PFSH Past Medical History Medical History: Denies Significant Hx Diminished Hearing: No Musculoskeletal: Yes (herniated disc, chronic back pain) ?: Not Past Surgical History Surgical History: No Previous Surgery Social History Alcohol Use: No Tobacco Use: Yes (occassionally, not daily) Substance Use: No Allergies-Medications (Allergen,Severity, Reaction): Coded Allergies: No Known Allergies (Unverified Adverse Reaction, Unknown, 05/01/17) Reported Meds & Prescriptions Reported Meds & Active Scripts Active Reported Hydrocodone-Acetaminophen 10-325 mg Tab 1 Tab PO Q6H PRN Review of Systems Except as stated in HPI: all other systems reviewed are Neg General / Constitutional: Positive: Fever, Chills Eyes: No: Drainage, Redness HENT: Positive: Headaches, Congestion Respiratory: Positive: Cough, Wheezing Physical Exam Narrative GENERAL: Awake and alert and in no acute distress. SKIN: Warm and dry. HEAD: Normocephalic/atraumatic. EYES: Pupils are equal. Extraocular movements are intact. ENT: No significant edema of the nasal turbinates. Oropharynx has no edema, headache, tonsillar enlargement. NECK: Normal range of motion. No cervical lymphadenopathy. CARDIOVASCULAR: Regular rate and rhythm. RESPIRATORY: Nonlabored respirations. Lungs sound clear with good air movement throughout. MUSCULOSKELETAL: Atraumatic. NEUROLOGICAL: Nonfocal. PSYCHIATRIC: Appropriate mood and affect. Data Data Last Documented VS Vital Signs Date Time Temp Pulse Resp B/P (MAP) Pulse Ox O2 Delivery O2 Flow Rate FiO2 05/01/17 20:44 98.0 94 18 174/94 (120) 100 Room Air Orders Orders Chest, Pa & Lat (05/01/17 21:12) MDM Medical Decision Making Medical Screen Exam Complete: Yes Emergency Medical Condition: Yes Differential Diagnosis Differential diagnosis includes but is not limited to viral respiratory illness , bronchitis, pneumonia, allergies, CHF, asthma/COPD. Narrative Course This patient presents with a chief complaint of cough. He is concerned that he has pneumonia. Vital Signs Date Time Temp Pulse Resp B/P (MAP) Pulse Ox O2 Delivery O2 Flow Rate FiO2 05/01/17 20:44 98.0 94 18 174/94 (120) 100 Room Air Last Impressions Chest X-Ray 05/01/172111 Signed Impressions: Service Date/Time: Monday, May 01, 2017 21:20 - CONCLUSION: No evidence of acute cardiopulmonary disease. Jefe Shearer MD The patient will be treated symptomatically for a respiratory infection. Diagnosis Primary Impression: Upper respiratory infection Qualified Codes: J06.9 - Acute upper respiratory infection, unspecified; B97.89 - Other viral agents as the cause of diseases classified elsewhere Patient Instructions: General Instructions, Upper Respiratory Infection (DC) Additional Instructions: I recommend the use of a Neti Pot. You may use a nasal spray such as Afrin for up to 3 days as needed for nasal congestion. You may take an imfq-pmd-loiudaw antihistamine such as Zyrtec, Amelia or Claritin as needed for runny secretions. You may take pseudoephedrine as needed for congestion. You will need to sign for this at the pharmacy. You may take plain Mucinex, 1200 mg twice a day as needed for thick secretions. You may take a cough syrup such as Delsym as needed for cough. Motrin as needed for fever and body aches. Throat lozenges/sprays as needed for sore throat. Warm salt water gargles for sore throat. Hot tea with lemon and honey also helps soothe a sore throat. Disposition: 01 DISCHARGE HOME Condition: Stable Maribell Bailon MD May 01, 2017 22:04
== END 2017-05-01 22:27 | disposition home or self-care (01) ==
LOC: NEPD 20:42
DX: J06.9 Acute upper respiratory infection, unspecified (principal); B97.89 Other viral agents as the cause of diseases classified elsewhere; R05 Cough; R06.2 Wheezing; R51 Headache; R50.9 Fever, unspecified; Z72.0 Tobacco use; Z87.39 Personal history of other diseases of the musculoskeletal system and connective tissue
CPT/HCPCS: 71020; 99283

== ENCOUNTER 2017-06-16 22:04 | Emergency (ER) | payer OTHER ==
[~2017-06-16] VITALS: Ht 172.7 cm; Wt 145.4 kg
[2017-06-16 22:06] VITALS: BP 177/91; PULSE 81; RESP 18; TEMP 97.8; O2SAT 99
--- NOTE | 2017-06-16 23:08 | PD ---
HPI Chief Complaint: Medical Clearance Time Seen by Provider: 22:48 Travel History International Travel<30 days: No Contact w/Intl Traveler<30days: No Traveled to known affect area: No History of Present Illness HPI 32-year-old black male presents to emergency department requesting evaluation of MRSA sepsis. The patient states that he has had a rash intermittently now for the past year or so. He states that he had, crossed someone who had MRSA. He has been searching the Internet and has determined I his Google search that he has MRSA sepsis. He denies any fever or chills. No nausea vomiting. Symptoms are mild. The patient is followed by Dr. Chaudhary for chronic pain. He states that he is currently taking Zanaflex and has ran out of his narcotic opiates and he is only taking Tylenol. He has not gotten a refill of his pain medications from his pain management doctor. History Past Medical Histgory Narrative Medical Chronic pain Denies diabetes, hypertension, connective tissue disorders, blood dyscrasias. Past Surgical History Surgical History: No Previous Surgery Family History Narrative Family History Father in his late 50s or early 60s from lung cancer. No history of heart disease. Mother is alive and healthy. Social History Alcohol Use: No Tobacco Use: Yes (occassionally, not daily) Allergies-Medications (Allergen,Severity, Reaction): Coded Allergies: No Known Allergies (Unverified Adverse Reaction, Unknown, 06/16/17) Reported Meds & Prescriptions Reported Meds & Active Scripts Active Reported Hydrocodone-Acetaminophen 10-325 mg Tab 1 Tab PO Q6H PRN Review of Systems General / Constitutional: No: Fever Eyes: No: Visual changes HENT: No: Headaches Cardiovascular: Positive: Chest Pain or Discomfort Respiratory: No: Cough, Shortness of Breath, Night Sweats Gastrointestinal: No: Nausea, Vomiting, Abdominal Pain Genitourinary: No: Dysuria Musculoskeletal: No: Pain Skin: No Rash Neurologic: No: Weakness Psychiatric: No: Depression Endocrine: No: Polydipsia Hematologic/Lymphatic: No: Easy Bruising Physical Exam Narrative GENERAL: This is a well-nourished, well-developed patient, in no apparent distress. SKIN: No rashes, ecchymoses or lesions. Warm and dry. HEAD: Atraumatic. Normocephalic. EYES: PERRL, EOMI, no discharge or injection. No scleral icterus. EARS: Clear NOSE: Nasal turbinates appear normal. THROAT: Mucosa pink and moist. Airway patent. NECK: Trachea midline. supple, moves head freely. LUNGS: Clear to auscultation. CV: Regular in rhythm. ABDOMEN: Soft nontender. EXT: No clubbing cyanosis or edema. Data Data Last Documented VS Vital Signs Date Time Temp Pulse Resp B/P (MAP) Pulse Ox O2 Delivery O2 Flow Rate FiO2 06/16/17 22:06 97.8 81 18 177/91 (119) 99 Room Air MDM Medical Screen Exam Complete: Yes Emergency Medical Condition: No Differential Diagnosis MDM: High Differential diagnoses: Abscess, folliculitis, cellulitis, lymphangitis, abrasion, contact dermatitis Narrative Course A medical screening exam was performed: At the time of evaluation the presenting medical condition was determined not to be of an emergent nature. The patient was given the option of receiving additional care, but declined. Patient was given options for additional community resources from which to obtain care. The Patient Has Been advised to seek medical attention for their presenting complaint. The patient has been advised to return to the ER at any time if an emergent condition develops. Primary Impression: Encounter for medical screening examination Condition: Stable Giacomo Jones Jun 16, 2017 23:08
== END 2017-06-16 23:05 | disposition left against medical advice (07) ==
LOC: NEPD 22:04
DX: R07.9 Chest pain, unspecified (principal); G89.29 Other chronic pain; Z72.0 Tobacco use
CPT/HCPCS: 99281

== ENCOUNTER 2017-07-16 17:12 | Emergency (ER) | payer OTHER ==
[2017-07-16 17:15] VITALS: BP 174/96; PULSE 84; RESP 14; TEMP 98.4; O2SAT 98
== END 2017-07-16 17:32 | disposition left against medical advice (07) ==
LOC: NED 17:12
DX: Z53.21 Procedure and treatment not carried out due to patient leaving prior to being seen by health care provider (principal)
CPT/HCPCS: 99281

== ENCOUNTER 2017-07-18 09:55 | Emergency (ER) | payer OTHER ==
[~2017-07-18] VITALS: Ht 170.2 cm; Wt 143.0 kg
[2017-07-18 09:59] VITALS: BP 133/87; PULSE 87; RESP 15; TEMP 98.1; O2SAT 98
[2017-07-18] MEDS ORDERED: BACT800T5 PO (10:34)
[2017-07-18] MEDS ORDERED: PERM5CRE TOPICAL (10:34)
--- NOTE | 2017-07-18 10:39 | PD ---
HPI Chief Complaint: Skin Problem Time Seen by Provider: 10:25 Travel History International Travel<30 days: No Contact w/Intl Traveler<30days: No Traveled to known affect area: No History of Present Illness HPI 32-year-old -Irish male presents emergency department with ongoing and recurrent itchy rash to both his lower extremities and forearms. Patient states he feels it may be scabies versus MRSA. He states he has been treated for scabies in the past about 2 weeks ago but his symptoms have returned. There is no draining lesions. He denies fever, chills, or other symptoms. He has no pain. He has no known drug allergies. PFSH Past Medical History Hx Anticoagulant Therapy: No Cardiovascular Problems: No Chemotherapy: No Cerebrovascular Accident: No Diabetes: No Diminished Hearing: No Musculoskeletal: Yes (herniated disc, chronic back pain) Respiratory: No Social History Alcohol Use: No Tobacco Use: Yes (occassionally, not daily) Substance Use: No Allergies-Medications (Allergen,Severity, Reaction): Coded Allergies: No Known Allergies (Unverified Adverse Reaction, Unknown, 06/16/17) Reported Meds & Prescriptions Reported Meds & Active Scripts Active Reported Hydrocodone-Acetaminophen 10-325 mg Tab 1 Tab PO Q6H PRN Review of Systems Except as stated in HPI: all other systems reviewed are Neg General / Constitutional: No: Fever Eyes: No: Visual changes HENT: No: Headaches Cardiovascular: No: Chest Pain or Discomfort Respiratory: No: Shortness of Breath Gastrointestinal: No: Abdominal Pain Genitourinary: No: Dysuria Musculoskeletal: No: Pain Skin: Positive Rash, Positive Itching, Positive Lesions Neurologic: No: Weakness Psychiatric: No: Depression Endocrine: No: Polydipsia Hematologic/Lymphatic: No: Easy Bruising Physical Exam Narrative GENERAL: Patient appears in no acute distress SKIN: Warm and dry. Normal color. Normal turgor. Patient has questionable lesions suggestive of scabies. The other lesions he is speaking of appear consistent with a folliculitis versus a MRSA cellulitis. HEAD: Atraumatic. Normocephalic. EYES: Pupils equal and round. No scleral icterus. No injection or drainage. ENT: No nasal bleeding or discharge. Mucous membranes pink and moist. Airway is patent NECK: Trachea midline. Supple. CARDIOVASCULAR: Regular rate and rhythm. RESPIRATORY: No accessory muscle use. Clear to auscultation. Breath sounds equal bilaterally. MUSCULOSKELETAL: Extremities without clubbing, cyanosis, or edema. No obvious deformities. NEUROLOGICAL: Awake and alert. No obvious cranial nerve deficits. Motor grossly within normal limits. Five out of 5 muscle strength in the arms and legs. Normal speech. PSYCHIATRIC: Appropriate mood and affect; insight and judgment normal. Data Data Last Documented VS Vital Signs Date Time Temp Pulse Resp B/P (MAP) Pulse Ox O2 Delivery O2 Flow Rate FiO2 07/18/17 09:59 98.1 87 15 133/87 (102) 98 MDM Medical Decision Making Medical Screen Exam Complete: Yes Emergency Medical Condition: Yes Differential Diagnosis Scabies. Folliculitis. Cellulitis Narrative Course Patient is treated with permethrin lotion as directed with 1 refill. Patient is also given Bactrim DS twice daily 7 days. Patient is referred to [facility] for follow-up. Diagnosis Primary Impression: Folliculitis Additional Impression: Scabies Referrals: [facility] Patient Instructions: Folliculitis (ED), General Instructions, Scabies (ED) Additional Instructions: Patient is treated with permethrin lotion as directed with 1 refill. Patient is also given Bactrim DS twice daily 7 days. Patient is referred to [facility] for follow-up. Med/Other Pt SpecificInfo: Prescription(s) given Scripts Sulfamethoxazole-Trimethoprim (Bactrim DS) 800-160 Mg Tab 1 TAB PO BID for Infection, #14 TAB 0 Refills Prov: Jc Mathews MD 07/18/17 Permethrin Topical 5% (Permethrin Topical 5%) 5% Cream 1 APPLIC TOPICAL ONCE for Scabies, #1 TUBE 1 Refill Prov: Jc Mathews MD 07/18/17 Disposition: 01 DISCHARGE HOME Condition: Stable Rik Owens Jul 18, 2017 10:38
== END 2017-07-18 11:03 | disposition home or self-care (01) ==
LOC: NEPK 09:55
DX: L73.9 Follicular disorder, unspecified (principal); B86 Scabies; Z72.0 Tobacco use
CPT/HCPCS: 99283

== ENCOUNTER 2017-07-22 13:04 | Emergency (ER) | payer OTHER ==
[~2017-07-22] VITALS: Ht 170.2 cm; Wt 148.5 kg
[~2017-07-22 13:04] MED LIST changes: +BACT800T5 PO; +PERM5CRE TOPICAL
[2017-07-22 13:13] VITALS: BP 121/56; PULSE 107; RESP 18; TEMP 98.6; O2SAT 98
[2017-07-22] MEDS ORDERED: PERM5CRE11 TOPICAL (14:00)
--- NOTE | 2017-07-22 14:00 | PD ---
HPI Chief Complaint: Skin Problem Time Seen by Provider: 13:44 Travel History International Travel<30 days: No Contact w/Intl Traveler<30days: No Traveled to known affect area: No History of Present Illness HPI This is a 32-year-old male here with pruritic rash to his upper and lower extremities. He reports this is similar to a scabies rash is on the past. He was seen in the ER 4 days ago and diagnosed with folliculitis. He was put on Bactrim and Elimite. Patient reports that he has been staying with various people and in hotels and is concerned this is scabies again. He denies fever or chills. No aggravating or alleviating factors. PFSH Past Medical History Hx Anticoagulant Therapy: No Cardiovascular Problems: No Chemotherapy: No Cerebrovascular Accident: No Diabetes: No Diminished Hearing: No Musculoskeletal: Yes (herniated disc, chronic back pain) Respiratory: No Social History Alcohol Use: No Tobacco Use: Yes (occassionally, not daily) Substance Use: No Allergies-Medications (Allergen,Severity, Reaction): Coded Allergies: No Known Allergies (Unverified Adverse Reaction, Unknown, 07/22/17) Reported Meds & Prescriptions Reported Meds & Active Scripts Active Elimite Topical (Permethrin) 5% Cream 1 Applic TOPICAL ONCE Bactrim DS (Sulfamethoxazole-Trimethoprim) 800-160 Mg Tab 1 Tab PO BID Reported Hydrocodone-Acetaminophen 10-325 mg Tab 1 Tab PO Q6H PRN Review of Systems Except as stated in HPI: all other systems reviewed are Neg General / Constitutional: No: Fever Eyes: No: Visual changes HENT: No: Headaches Cardiovascular: No: Chest Pain or Discomfort Respiratory: No: Shortness of Breath Gastrointestinal: No: Abdominal Pain Genitourinary: No: Dysuria Skin: Positive Rash Physical Exam Narrative GENERAL: Alert and well-appearing 32-year-old male SKIN: Warm and dry. Faint rash to the webs of the fingers bilaterally extending into the dorsal aspect of the hands and forearms. No areas of induration or fluctuance. HEAD: Normocephalic. EYES: No injection or drainage. NECK: Supple MUSCULOSKELETAL: No cyanosis, or edema. Data Data Last Documented VS Vital Signs Date Time Temp Pulse Resp B/P (MAP) Pulse Ox O2 Delivery O2 Flow Rate FiO2 07/22/17 13:13 98.6 107 18 121/56 (77) 98 [facility] Medical Decision Making Medical Screen Exam Complete: Yes Emergency Medical Condition: Yes Differential Diagnosis Scabies rash, dermatitis, other Narrative Course This is a 32-year-old male with potential scabies rash to his upper extremities. He reports a history of previous scabies infestation. He is nontoxic appearing. He'll be treated with Elimite cream and instructed to use it 1 week from his prior dose. Diagnosis Primary Impression: Scabies Referrals: Primary Care Physician Additional Instructions: Wash clothing and bedding in hot water. Use Elimite cream as directed on 07/25/17 Scripts Permethrin Topical (Elimite Topical) 5% Cream 1 APPLIC TOPICAL ONCE for Scabies, #1 TUBE 0 Refills Prov: Jacqueline Ohara 07/22/17 Disposition: 01 DISCHARGE HOME Condition: Stable Jacqueline Ohara Jul 22, 2017 14:00
== END 2017-07-22 14:15 | disposition home or self-care (01) ==
LOC: PHEFT 13:04
DX: B86 Scabies (principal)
CPT/HCPCS: 99282

== ENCOUNTER 2017-08-14 14:54 | Emergency (ER) | payer OTHER ==
[~2017-08-14] VITALS: Ht 170.2 cm; Wt 150.0 kg
[~2017-08-14 14:54] MED LIST changes: -PERM5CRE TOPICAL; +PERM5CRE11 TOPICAL
[2017-08-14 14:57] VITALS: BP 150/70; PULSE 70; RESP 18; TEMP 98.4; O2SAT 98
[2017-08-14] MEDS ORDERED: KETOROLAC TROMETHAMINE 30 MG/ML (IVP) VIAL IM ONE (15:45)
[2017-08-14] MEDS ORDERED: SODIUM CHLORIDE 0.9% FLUSH 10 ML FLUSH IVF PRN (15:45)
[2017-08-14] MEDS ORDERED: CYCLOBENZAPRINE HCL 10 MG TAB PO ONE (15:45)
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
[2017-08-14] MEDS ORDERED: NAPR500 PO (16:34)
[2017-08-14] MEDS ORDERED: CYCL10TA PO (16:34)
== END 2017-08-14 17:02 | disposition home or self-care (01) ==
LOC: NEPD 14:54
DX: S16.1XXA Strain of muscle, fascia and tendon at neck level, initial encounter (principal); S39.012A Strain of muscle, fascia and tendon of lower back, initial encounter; V42.5XXA Car driver injured in collision with two- or three-wheeled motor vehicle in traffic accident, initial encounter; G89.29 Other chronic pain; M54.9 Dorsalgia, unspecified; Z72.0 Tobacco use
CPT/HCPCS: 72050; 72100; 96372; 99283; J1885

== ENCOUNTER 2017-08-17 12:35 | Emergency (ER) | payer OTHER ==
[~2017-08-17] VITALS: Ht 170.2 cm; Wt 152.2 kg
[~2017-08-17 12:35] MED LIST changes: -BACT800T5 PO; +CYCL10TA PO; -HYDR-3583 PO; +NAPR500 PO; -PERM5CRE11 TOPICAL
[2017-08-17 12:42] VITALS: BP 128/73; PULSE 91; RESP 18; TEMP 98.4; O2SAT 99
--- NOTE | 2017-08-17 13:47 | PD ---
HPI Chief Complaint: Multiple complaints Time Seen by Provider: 13:26 Travel History International Travel<30 days: No Contact w/Intl Traveler<30days: No Traveled to known affect area: No History of Present Illness HPI This 32-year-old male has multiple complaints. He wears a back brace and says that because of the back brace he is unable to expel gas at the appropriate time. For that reason the gas accumulates and he tends to have a bad odor. He is also concerned that the ability comes in contact with 10 to lose weight. He feels that he is responsible for this. He does say that he has seen a psychiatrist in the past but they told him that nothing was wrong with him. He denies any thoughts of hurting himself or anyone else. He is on no medication. PFSH Past Medical History Hx Anticoagulant Therapy: No Cardiovascular Problems: No Chemotherapy: No Cerebrovascular Accident: No Diabetes: No Diminished Hearing: No Musculoskeletal: Yes (herniated disc, chronic back pain) Respiratory: No Immunizations Current: Yes Influenza Vaccination: No ?: Not Past Surgical History Surgical History: No Previous Surgery Social History Alcohol Use: No Tobacco Use: Yes (occassionally, not daily) Substance Use: No Allergies-Medications (Allergen,Severity, Reaction): Coded Allergies: No Known Allergies (Unverified Adverse Reaction, Unknown, 08/17/17) Reported Meds & Prescriptions Reported Meds & Active Scripts Active Review of Systems General / Constitutional: No: Fever, Chills Eyes: No: Diploplia, Blurred Vision HENT: No: Headaches Cardiovascular: No: Chest Pain or Discomfort, Palpitations Respiratory: No: Shortness of Breath Gastrointestinal: No: Vomiting, Diarrhea Genitourinary: No: Urgency Physical Exam Narrative GENERAL: Well-developed male SKIN: Focused skin assessment warm/dry. HEAD: Atraumatic. Normocephalic. EYES: Pupils equal and round. No scleral icterus. No injection or drainage. ENT: No nasal bleeding or discharge. Mucous membranes pink and moist. NECK: Trachea midline. No JVD. CARDIOVASCULAR: Regular rate and rhythm. No murmur appreciated. RESPIRATORY: No accessory muscle use. Clear to auscultation. Breath sounds equal bilaterally. GASTROINTESTINAL: Abdomen soft, non-tender, nondistended. Hepatic and splenic margins not palpable. MUSCULOSKELETAL: No obvious deformities. No clubbing. No cyanosis. No edema. NEUROLOGICAL: Awake and alert. No obvious cranial nerve deficits. Motor grossly within normal limits. Normal speech. PSYCHIATRIC: Patient is oriented. He is very cooperative. He does have these delusions that he is causing people to lose weight. He denies any thoughts of hurting himself or others Data Data Last Documented VS Vital Signs Date Time Temp Pulse Resp B/P (MAP) Pulse Ox O2 Delivery O2 Flow Rate FiO2 08/17/17 12:42 98.4 91 18 128/73 (91) 99 MDM Medical Decision Making Medical Screen Exam Complete: Yes Emergency Medical Condition: Yes Medical Record Reviewed: Yes Differential Diagnosis Differential includes schizophrenia, bipolar disorder, delusional disorder Narrative Course I explained my impression to the patient. I have offered to get him to see a psychiatrist but he does not wish to at this time. He is not a danger to himself or others and so I am not going to [place] act him. He is very cooperative and will be released Diagnosis Primary Impression: Delusional disorder Additional Instructions: Return as needed Scripts No Active Prescriptions or Reported Meds Disposition: 01 DISCHARGE HOME Condition: Stable Wiley Boudreaux MD Aug 17, 2017 13:47
== END 2017-08-17 14:55 | disposition home or self-care (01) ==
LOC: PHED 12:35
DX: F22 Delusional disorders (principal); Z72.0 Tobacco use; Z87.39 Personal history of other diseases of the musculoskeletal system and connective tissue
CPT/HCPCS: 99281

== ENCOUNTER 2017-08-18 08:55 | Emergency (ER) | payer OTHER ==
[~2017-08-18] VITALS: Ht 170.2 cm; Wt 150.0 kg
[2017-08-18 09:09] VITALS: BP 148/78; PULSE 70; RESP 16; TEMP 97.5; O2SAT 99
--- NOTE | 2017-08-18 09:32 | PD ---
HPI Chief Complaint: Complaint Time Seen by Provider: 09:20 Travel History International Travel<30 days: No Contact w/Intl Traveler<30days: No Traveled to known affect area: No History of Present Illness HPI 32-year-old male presents to the ED for evaluation of 1 week history of painful ejaculation. Patient endorses a burning sensation. He denies dysuria, hematuria, penile discharge, genital lesions. He endorses unprotected sex with 2 different females. He does not know if either one of them is symptomatic. He denies fevers, chills, nausea, vomiting, abdominal pain, testicular pain. No treatment attempt at home. PFSH Past Medical History Hx Anticoagulant Therapy: No Cardiovascular Problems: No Chemotherapy: No Cerebrovascular Accident: No Diabetes: No Diminished Hearing: No Musculoskeletal: Yes (herniated disc, chronic back pain) Respiratory: No Immunizations Current: Yes Social History Alcohol Use: No Tobacco Use: Yes (occassionally, not daily) Substance Use: No Allergies-Medications (Allergen,Severity, Reaction): Coded Allergies: No Known Allergies (Unverified Adverse Reaction, Unknown, 08/17/17) Reported Meds & Prescriptions Reported Meds & Active Scripts Active Review of Systems Except as stated in HPI: all other systems reviewed are Neg Physical Exam Narrative GENERAL: Well-nourished, well-developed AA male in NAD. SKIN: Focused skin assessment warm/dry. HEAD: Normocephalic. EYES: No scleral icterus. No injection or drainage. NECK: Supple, trachea midline. No JVD or lymphadenopathy. CARDIOVASCULAR: Regular rate and rhythm without murmurs, gallops, or rubs. RESPIRATORY: Breath sounds equal bilaterally. No accessory muscle use. GASTROINTESTINAL: Abdomen soft, non-tender, nondistended. Active bowel sounds. GENITOURINARY: Circumcised. Testes descended bilaterally without evidence of rotation. No lesions or erythema. No urethral discharge. MUSCULOSKELETAL: No cyanosis, or edema. BACK: Nontender without obvious deformity. No CVA tenderness. Data Data Last Documented VS Vital Signs Date Time Temp Pulse Resp B/P (MAP) Pulse Ox O2 Delivery O2 Flow Rate FiO2 08/18/17 09:09 97.5 70 16 148/78 (101) 99 Orders Orders Urinalysis - C+S If Indicated (08/18/17 09:17) Gc And Chlamydia Pcr (08/18/17 09:17) Azithromycin Powd Pack (Zithromax Powd P (08/18/17 09:45) Ceftriaxone Inj (Rocephin Inj) (08/18/17 09:45) Lidocaine 1% Inj (50 Ml) (Xylocaine 1% I (08/18/17 09:45) Lidocaine 1% Inj (Xylocaine 1% Inj) (08/18/17 09:42) Ed Discharge Order (08/18/17 10:04) Labs Laboratory Tests Test 08/18/17 09:25 Urine Color YELLOW Urine Turbidity CLEAR Urine pH 5.5 Urine Specific [place] 1.028 Urine Protein TRACE mg/dL Urine Glucose (UA) NEG mg/dL Urine Ketones NEG mg/dL Urine Occult Blood NEG Urine Nitrite NEG Urine Bilirubin NEG Urine Urobilinogen LESS THAN 2.0 MG/DL Urine Leukocyte Esterase TRACE Urine RBC LESS THAN 1 /hpf Urine WBC 5 /hpf Urine Squamous Epithelial Cells <1 /hpf Urine Bacteria RARE /hpf Microscopic Urinalysis Comment CULT NOT INDICATED MDM Medical Decision Making Medical Screen Exam Complete: Yes Emergency Medical Condition: Yes Differential Diagnosis UTI versus urethritis versus gonorrhea versus chlamydia versus other Narrative Course 32-year-old male presents to the ED for evaluation of 1 week history of painful ejaculation. Patient endorses a burning sensation. He denies dysuria, hematuria, penile discharge, genital lesions. He endorses unprotected sex with 2 different females. He does not know if either one of them is symptomatic. He denies fevers, chills, nausea, vomiting, abdominal pain, testicular pain. Vitals reviewed. Exam is reassuring. No testicular pain. No genital lesions. No penile discharge. No culture indicated of the UA. Gonorrhea and GC PCR pending. Patient agrees to empiric treatment. He was administered IM Rocephin and 1 g of azithromycin by mouth. He is instructed to abstain from sex, report all partners, follow with the health Department for test of cure and full battery of STD testing. He is stable and discharged home. Diagnosis Primary Impression: Urethritis Referrals: [facility]. Additional Instructions: Abstain from sex until test of cure has been proven in one week. Report symptoms to all sexual partners. Use safer sex methods such as condoms. Follow-up with the health department this week for a full battery of STD testing and test of cure. Return to the ED for worsening symptoms or any urgent or emergent medical condition. Scripts No Active Prescriptions or Reported Meds Disposition: 01 DISCHARGE HOME Condition: Stable Kari Castellano Aug 18, 2017 09:32
[2017-08-18] MEDS ORDERED: LIDOCAINE HCL 1% 20 ML VIAL ONE (09:42)
[2017-08-18] MEDS ORDERED: LIDOCAINE HCL 1% 50 ML VIAL XX ONE (09:45)
[2017-08-18] MEDS ORDERED: cefTRIAXone 250 MG VIAL IM ONE (09:45)
[2017-08-18] MEDS ORDERED: AZITHROMYCIN PWD FOR SUSP 1 GM PACKET PO ONE (09:45)
[2017-08-18 09:59] LABS: BACTERIA, URINE RARE /hpf; BILIRUBIN, URINE NEG (NEG); BLOOD, URINE NEG (NEG); GLUCOSE,URINE NEG (NEG); KETONE, URINE NEG (NEG); NITRITE,URINE NEG (NEG); PH, URINE 5.5 (5.0-8.5); SQUAMOUS EPITHELIAL CELL URINE <1 /hpf (0-5); URINE COLOR YELLOW (YELLW/STRAW); URINE LEUKOCYTE ESTERASE TRACE (NEG)
== END 2017-08-18 10:19 | disposition home or self-care (01) ==
LOC: NEPK 08:55
DX: N21.1 Calculus in urethra (principal); Z72.0 Tobacco use
CPT/HCPCS: 81001; 87491; 87591; 96372; 99283; J0696

== ENCOUNTER 2017-08-21 10:19 | Emergency (ER) | payer OTHER ==
[~2017-08-21] VITALS: Ht 170.2 cm; Wt 145.0 kg
[2017-08-21 10:31] VITALS: BP 128/73; PULSE 92; RESP 18; TEMP 98.4; O2SAT 98
[2017-08-21] MEDS ORDERED: PERM5CRE11 TOPICAL (11:03)
--- NOTE | 2017-08-21 11:04 | PD ---
HPI Chief Complaint: Skin Problem Time Seen by Provider: 10:58 Travel History International Travel<30 days: No Contact w/Intl Traveler<30days: No Traveled to known affect area: No History of Present Illness HPI 32-year-old male presents emergency department for evaluation of a pruritic rash on his trunk, upper extremities, and in between his fingers worsening over the last 2 days. Patient states that his girlfriend has recently been diagnosed with scabies. He believes he has this. Reports no other new exposures. No fever chills. He has no known allergies. PFSH Past Medical History Hx Anticoagulant Therapy: No Cardiovascular Problems: No Chemotherapy: No Cerebrovascular Accident: No Diabetes: No Diminished Hearing: No Musculoskeletal: Yes (herniated disc, chronic back pain) Respiratory: No Immunizations Current: Yes Social History Alcohol Use: No Tobacco Use: Yes (occassionally, not daily) Substance Use: No Allergies-Medications (Allergen,Severity, Reaction): Coded Allergies: No Known Allergies (Unverified Adverse Reaction, Unknown, 08/21/17) Reported Meds & Prescriptions Reported Meds & Active Scripts Active Elimite Topical (Permethrin) 5% Cream 1 Applic TOPICAL ONCE Review of Systems Except as stated in HPI: all other systems reviewed are Neg Physical Exam Narrative GENERAL: Obese male patient, in no acute distress. SKIN: Focused skin assessment warm/dry. Micropapules with mild excoriation in the finger webbing, greater on the right than left. There are scattered on the upper extremity and right lateral trunk. HEAD: Atraumatic. Normocephalic. EYES: Pupils equal and round. No scleral icterus. No injection or drainage. ENT: No nasal bleeding or discharge. Mucous membranes pink and moist. NECK: Trachea midline. No JVD. CARDIOVASCULAR: Regular rate and rhythm. No murmur appreciated. RESPIRATORY: No accessory muscle use. Clear to auscultation. Breath sounds equal bilaterally. GASTROINTESTINAL: Abdomen soft, non-tender, nondistended. Hepatic and splenic margins not palpable. MUSCULOSKELETAL: No obvious deformities. No clubbing. No cyanosis. No edema. NEUROLOGICAL: Awake and alert. No obvious cranial nerve deficits. Motor grossly within normal limits. Normal speech. PSYCHIATRIC: Appropriate mood and affect; insight and judgment normal. Data Data Last Documented VS Vital Signs Date Time Temp Pulse Resp B/P (MAP) Pulse Ox O2 Delivery O2 Flow Rate FiO2 08/21/17 10:31 98.4 92 18 128/73 (91) 98 Orders Orders Ed Discharge Order (08/21/17 11:01) MDM Medical Decision Making Medical Screen Exam Complete: Yes Emergency Medical Condition: Yes Medical Record Reviewed: Yes Differential Diagnosis Scabies versus folliculitis versus contact dermatitis Narrative Course 32-year-old male presents emergency department for evaluation of a pruritic rash after being exposed to scabies that his girlfriend was recently diagnosed with. Physical exam and history are consistent with scabies. Patient will be treated for this. He is counseled on care. He agrees to return immediately with any acute worsening symptoms. Diagnosis Primary Impression: Scabies Referrals: Primary Care Physician Patient Instructions: General Instructions, Scabies (ED) Additional Instructions: Avoid scratching Follow-up with a primary care provider Wash all of your clothing and bedding in hot water and dry on the hottest setting Return immediately to the emergency department with any acute worsening symptoms Med/Other Pt SpecificInfo: Prescription(s) given Scripts Permethrin Topical (Elimite Topical) 5% Cream 1 APPLIC TOPICAL ONCE for Scabies, #1 TUBE 0 Refills Prov: Emperatriz Warren 08/21/17 Disposition: 01 DISCHARGE HOME Condition: Stable Emperatriz Warren Aug 21, 2017 11:04
== END 2017-08-21 11:36 | disposition home or self-care (01) ==
LOC: NEPD 10:19
DX: B86 Scabies (principal); Z72.0 Tobacco use
CPT/HCPCS: 99283

== ENCOUNTER 2017-08-31 13:25 | Emergency (ER) | payer OTHER ==
[~2017-08-31] VITALS: Ht 170.2 cm; Wt 147.7 kg
[~2017-08-31 13:25] MED LIST changes: -CYCL10TA PO; -NAPR500 PO; +PERM5CRE11 TOPICAL
[2017-08-31 13:28] VITALS: BP 169/80; PULSE 99; RESP 18; TEMP 98.6; O2SAT 98
[2017-08-31] MEDS ORDERED: SODIUM CHLORIDE 0.9% FLUSH 10 ML FLUSH IVF PRN (13:45)
[2017-08-31 14:16] LABS: BACTERIA, URINE RARE /hpf; BILIRUBIN, URINE NEG (NEG); BLOOD, URINE NEG (NEG); GLUCOSE,URINE NEG (NEG); KETONE, URINE NEG (NEG); MUCUS URINE FEW /lpf (OCC); NITRITE,URINE NEG (NEG); PH, URINE 6.5 (5.0-8.5); SQUAMOUS EPITHELIAL CELL URINE <1 /hpf (0-5); TRANSITIONAL EPI CELLS, URINE <1 /hpf; URINE COLOR YELLOW (YELLW/STRAW); URINE LEUKOCYTE ESTERASE MOD (NEG)
--- NOTE | 2017-08-31 14:39 | PD ---
HPI Chief Complaint: Cold / Flu Symptoms Time Seen by Provider: 14:37 Travel History International Travel<30 days: No Contact w/Intl Traveler<30days: No Traveled to known affect area: No History of Present Illness HPI 32-year-old male presents to the emergency department with 2 different complaints. His first complaint is burning on urination, discharge from his penis for the past 3-4 days. States he sexually active but does not know if he has been exposed to any STDs. Denies hematuria, abdominal pain, vomiting. Denies testicular pain, swelling. Has not taken any medications or try any treatments to alleviate his symptoms. Aggravated with urination. Relieved when not urinating. Symptoms are mild in severity. His second medical complaints is nasal congestion, cough, body aches, subjective fever for the last 3-4 days also. Has not taken his temperature and cannot report a T-max. Denies chest tightness, chest pain, shortness of breath , wheezing. Denies ear pain or sore throat. Symptoms are mild in severity. Has not taken any medications or try any treatments to alleviate his symptoms. No known aggravating or relieving factors. His friend was sick with similar symptoms. Has no other medical complaints. No primary care provider. No known allergies. Denies significant past medical history. No other modifying factors or associated signs and symptoms. PFSH Past Medical History Hx Anticoagulant Therapy: No Cardiovascular Problems: No Chemotherapy: No Cerebrovascular Accident: No Diabetes: No Diminished Hearing: No Musculoskeletal: Yes (herniated disc, chronic back pain) Respiratory: No Immunizations Current: Yes Social History Alcohol Use: No Tobacco Use: Yes (occassionally, not daily) Substance Use: No Allergies-Medications (Allergen,Severity, Reaction): Coded Allergies: No Known Allergies (Unverified Allergy, Unknown, 08/31/17) Reported Meds & Prescriptions Reported Meds & Active Scripts Active Keflex (Cephalexin) 500 Mg Cap 500 Mg PO Q12H 7 Days Review of Systems Except as stated in HPI: all other systems reviewed are Neg Physical Exam Narrative GENERAL: Well-nourished, well-developed black male patient, in no acute distress ; afebrile, nontoxic-appearing SKIN: Warm and dry. No rash. HEAD: Atraumatic. Normocephalic. EYES: Pupils equal and round. No scleral icterus. No injection or drainage. ENT: Mucosa pink and moist. No erythema or exudates. No uvular edema. No uvular , palatal, or tonsillar deviation. Airway patent. EARS: Bilateral pinnae and external canals appear within normal limits. Bilateral tympanic membranes without erythema, dullness or perforation. NECK: Trachea midline. No lymphadenopathy. CARDIOVASCULAR: Regular rate and rhythm. No murmur appreciated. RESPIRATORY: No accessory muscle use. Clear to auscultation. Breath sounds equal bilaterally. No retractions or tachypnea. GASTROINTESTINAL: Abdomen soft, non-tender, nondistended. Hepatic and splenic margins not palpable. Bowel sounds are active 4 quadrants. GENITOURINARY: Exam done in the presence of a nurse. Circumcised. Testes descended bilaterally without evidence of rotation. No lesions or erythema. Small amount of milky white urethral discharge noted. MUSCULOSKELETAL: No obvious deformities. No clubbing. No cyanosis. No edema. NEUROLOGICAL: Awake and alert. Oriented 3. No obvious cranial nerve deficits. Motor grossly within normal limits. Normal speech. Moves all extremities. 5/5 strength to all extremities. PSYCHIATRIC: Appropriate mood and affect; insight and judgment normal. Data Data Last Documented VS Vital Signs Date Time Temp Pulse Resp B/P (MAP) Pulse Ox O2 Delivery O2 Flow Rate FiO2 08/31/17 13:28 98.6 99 18 169/80 (109) 98 Orders Orders Influenzae A/B Antigen (08/31/17 13:31) Urinalysis - C+S If Indicated (08/31/17 13:31) Gc And Chlamydia Pcr (08/31/17 13:31) Sodium Chloride 0.9% Flush (Ns Flush) (08/31/17 13:45) Urine Culture (08/31/17 13:45) Ceftriaxone Inj (Rocephin Inj) (08/31/17 14:45) Lidocaine 1% Inj (50 Ml) (Xylocaine 1% I (08/31/17 14:45) Azithromycin (Zithromax) (08/31/17 14:45) Ed Discharge Order (08/31/17 14:48) Labs Laboratory Tests Test 08/31/17 13:45 Urine Color YELLOW Urine Turbidity CLEAR Urine pH 6.5 Urine Specific [place] 1.035 Urine Protein TRACE mg/dL Urine Glucose (UA) NEG mg/dL Urine Ketones NEG mg/dL Urine Occult Blood NEG Urine Nitrite NEG Urine Bilirubin NEG Urine Urobilinogen 2.0 MG/DL Urine Leukocyte Esterase MOD Urine RBC 1 /hpf Urine WBC 24 /hpf Urine Squamous Epithelial Cells <1 /hpf Urine Transitional Epithelial Cells <1 /hpf Urine Bacteria RARE /hpf Urine Mucus FEW /lpf Microscopic Urinalysis Comment CULTURE INDICATED MDM Medical Decision Making Medical Screen Exam Complete: Yes Emergency Medical Condition: Yes Medical Record Reviewed: Yes Differential Diagnosis Viral illness, influenza, upper respiratory infection, urethritis, UTI, chlamydia, gonorrhea Narrative Course 32-year-old male with urethritis, UTI, and viral illness. Patient is afebrile and nontoxic-appearing. Reports subjective fevers and denies vomiting. Patient empirically treated with azithromycin and Rocephin in the ER. Urinalysis, chlamydia, gonorrhea, influenza ordered in triage. 1438: Urinalysis with signs of infection. Urine reflex to culture. Discussed viral illness and symptom management. Keflex and doxycycline prescribed for home. Instructed patient to follow up with primary care provider. Patient verbalizes understanding and agreement with treatment plan. Patient is medically cleared and stable for discharge. Discussed reasons to return to the emergency department. Patient agrees with treatment plan. The patients vital signs are stable and the patient is stable for outpatient follow-up and treatment. Patient discharged home, stable and in no acute distress. Diagnosis Primary Impression: Urethritis Additional Impressions: Viral illness UTI (urinary tract infection) Qualified Codes: N39.0 - Urinary tract infection, site not specified Referrals: [facility] Primary Care Physician Patient Instructions: Chlamydia (ED), Cold Symptoms (ED), General Instructions , Gonorrhea (ED), Nonspecific Urethritis in Men (ED), Safe Use of Cough and Cold Medicines (ED), Urinary Tract Infection in Men (ED) Departure Forms: Tests/Procedures, Work Release Enter return to work date: Sep 01, 2017 Additional Instructions: Avoid sexual activity for 14 days No sexual activity with your partner/s until they have been treated and waited 14 days Inform all sexual partners within the past 3-6 months that they need to be evaluated and treated Use condoms every time you have sex Follow-up with primary care provider Return to the emergency department immediately with worsening of symptoms Ibuprofen or Tylenol as directed and as needed to reduce fever; may alternate ibuprofen and Tylenol as needed every 3 hours to minimize fever [id number] cold/flu medications as directed and as needed for symptom management Get plenty of sleep/rest Drink plenty of fluids to prevent dehydration; such as Gatorade, Powerade, Pedialyte [place] diet to encourage nutrition such as crackers, fruit, applesauce, toast, soup etc. Use an air humidifier/turn off ceiling fans Follow-up with your primary care provider within 1 day Return immediately to the emergency department with worsening of symptoms Med/Other Pt SpecificInfo: Prescription(s) given Scripts Doxycycline Hyclate (Doxycycline Hyclate) 100 Mg Tab 100 MG PO BID for 10 Days, #20 TAB Prov: Madeline Blackman 08/31/17 Cephalexin (Keflex) 500 Mg Cap 500 MG PO Q12H for Infection for 7 Days, #14 CAP 0 Refills Prov: Madeline Blackman 08/31/17 Disposition: 01 DISCHARGE HOME Condition: Stable Madeline Blackman Aug 31, 2017 14:39
[2017-08-31] MEDS ORDERED: LIDOCAINE HCL 1% 50 ML VIAL IM ONE (14:45)
[2017-08-31] MEDS ORDERED: cefTRIAXone 250 MG VIAL IM ONE (14:45)
[2017-08-31] MEDS ORDERED: AZITHROMYCIN 250 MG TAB PO ONE (14:45)
[2017-08-31] MEDS ORDERED: CEPH-460 PO (14:59)
[2017-08-31] MEDS ORDERED: LIDOCAINE HCL 1% PF 2 ML VIAL OTHER ONE (15:00)
[2017-08-31] MEDS ORDERED: DOXY100T PO (15:13)
== END 2017-08-31 15:32 | disposition home or self-care (01) ==
LOC: NEPK 13:25
DX: N34.2 Other urethritis (principal); B34.9 Viral infection, unspecified; R05 Cough; R09.81 Nasal congestion; Z72.0 Tobacco use
CPT/HCPCS: 81001; 87086; 87491; 87591; 87804; 96372; 99283; J0696

== ENCOUNTER 2017-09-07 20:25 | Emergency (ER) | payer OTHER ==
[~2017-09-07 20:25] MED LIST changes: +CEPH-460 PO; +DOXY100T PO; -PERM5CRE11 TOPICAL
[2017-09-07 21:01] VITALS: BP 171/92; PULSE 88; RESP 18; TEMP 98.4; O2SAT 98
--- NOTE | 2017-09-09 11:19 | PD ---
HPI Chief Complaint: Skin Problem Time Seen by Provider: 21:01 Travel History International Travel<30 days: No Contact w/Intl Traveler<30days: No History of Present Illness HPI 32-year-old male with recent diagnosis of scabies presents to the ED requesting permethrin refill. Patient endorses itching in the intertriginous areas. He denies fever, chills, nausea, vomiting. States that he used the previously provided prescription up and has not had improvement of his symptoms. PFSH Past Medical History Hx Anticoagulant Therapy: No Cardiovascular Problems: No Chemotherapy: No Cerebrovascular Accident: No Diabetes: No Diminished Hearing: No Musculoskeletal: Yes (herniated disc, chronic back pain) Respiratory: No Immunizations Current: Yes Social History Alcohol Use: No Tobacco Use: Yes (occassionally, not daily) Substance Use: No Allergies-Medications (Allergen,Severity, Reaction): Coded Allergies: No Known Allergies (Unverified Allergy, Unknown, 08/31/17) Reported Meds & Prescriptions Reported Meds & Active Scripts Active Doxycycline Hyclate 100 Mg Tab 100 Mg PO BID 10 Days Keflex (Cephalexin) 500 Mg Cap 500 Mg PO Q12H 7 Days Review of Systems Except as stated in HPI: all other systems reviewed are Neg Physical Exam Narrative GENERAL: Well-nourished, well-developed -[place] male in no acute distress. SKIN: Focused skin assessment warm/dry. HEAD: Normocephalic. EYES: No scleral icterus. No injection or drainage. RESPIRATORY: No accessory muscle use. MUSCULOSKELETAL: No cyanosis, or edema. Walks with a normal gait. BACK: No obvious deformity. Data Data Last Documented VS Vital Signs Date Time Temp Pulse Resp B/P (MAP) Pulse Ox O2 Delivery O2 Flow Rate FiO2 09/07/17 21:01 98.4 88 18 171/92 (118) 98 MDM Medical Decision Making Medical Screen Exam Complete: Yes Emergency Medical Condition: Yes Differential Diagnosis Contact dermatitis versus scabies versus intertrigo versus medication refill versus other Narrative Course 32-year-old male with recent diagnosis of scabies presents to the ED requesting permethrin refill. Patient endorses itching in the intertriginous areas. He denies fever, chills, nausea, vomiting. States that he used the previously provided prescription up and has not had improvement of his symptoms. Vitals reviewed. Limited exam perform in triage is reassuring. Patient is awaiting medical bed placement. Patient was not in the waiting room when called for his bed. Patient left AGAINST MEDICAL ADVICE. Diagnosis Primary Impression: Left against medical advice Patient Instructions: General Instructions Departure Forms: Tests/Procedures Disposition: 07 AGAINST MEDICAL ADVICE Kari Castellano Sep 09, 2017 11:19
== END 2017-09-08 01:10 | disposition left against medical advice (07) ==
LOC: NED 20:25
DX: B86 Scabies (principal); Z53.20 Procedure and treatment not carried out because of patient's decision for unspecified reasons; Z72.0 Tobacco use
CPT/HCPCS: 99281

== ENCOUNTER 2017-09-19 21:11 | Emergency (ER) | payer OTHER ==
[~2017-09-19] VITALS: Ht 170.2 cm; Wt 150.0 kg
[2017-09-19 21:36] VITALS: BP 146/89; PULSE 92; RESP 16; TEMP 98.7; O2SAT 99
[2017-09-19 22:28] LABS: BACTERIA, URINE OCC /hpf; BILIRUBIN, URINE NEG (NEG); BLOOD, URINE NEG (NEG); GLUCOSE,URINE NEG (NEG); KETONE, URINE NEG (NEG); MUCUS URINE FEW /lpf (OCC); NITRITE,URINE NEG (NEG); PH, URINE 5.5 (5.0-8.5); SQUAMOUS EPITHELIAL CELL URINE <1 /hpf (0-5); URINE COLOR YELLOW (YELLW/STRAW); URINE LEUKOCYTE ESTERASE SMALL (NEG)
[2017-09-19] MEDS ORDERED: LIDOCAINE HCL 1% 50 ML VIAL XX ONE (22:45)
[2017-09-19] MEDS ORDERED: cefTRIAXone 250 MG VIAL IM ONE (22:45)
[2017-09-19] MEDS ORDERED: AZITHROMYCIN 250 MG TAB PO ONE (22:45)
[2017-09-19] MEDS ORDERED: CIPR500T2 PO (22:54)
[2017-09-19] MEDS ORDERED: PERM5CRE TOPICAL (22:56)
--- NOTE | 2017-09-19 22:56 | PD ---
HPI Chief Complaint: Complaint Time Seen by Provider: 21:56 Travel History International Travel<30 days: No Contact w/Intl Traveler<30days: No Traveled to known affect area: No History of Present Illness HPI Patient is a 32-year-old male presenting to the emergency department for evaluation of dysuria and penile discharge. Patient reports recent unprotected sex. Symptoms started 2-3 days ago. He denies any fevers, chills, nausea, vomiting or abdominal pain. He states his urine has a foul odor. Symptom onset was gradual, symptoms are moderate in nature. There are no alleviating factors. Patient denies any significant past medical history. PFSH Past Medical History Medical History: Denies Significant Hx Hx Anticoagulant Therapy: No Cardiovascular Problems: No Chemotherapy: No Cerebrovascular Accident: No Diabetes: No Diminished Hearing: No Musculoskeletal: Yes (herniated disc, chronic back pain) Respiratory: No Immunizations Current: Yes Social History Alcohol Use: No Tobacco Use: Yes (occassionally, not daily) Substance Use: No Allergies-Medications (Allergen,Severity, Reaction): Coded Allergies: No Known Allergies (Unverified Allergy, Unknown, 09/19/17) Reported Meds & Prescriptions Reported Meds & Active Scripts Active Ciprofloxacin (Ciprofloxacin HCl) 500 Mg Tab 500 Mg PO BID 3 Days Doxycycline Hyclate 100 Mg Tab 100 Mg PO BID 10 Days Keflex (Cephalexin) 500 Mg Cap 500 Mg PO Q12H 7 Days Review of Systems Except as stated in HPI: all other systems reviewed are Neg Genitourinary: Positive: Dysuria, Discharge, Other (Odor) Physical Exam Narrative GENERAL: Overweight, well-developed, alert -[place]os[place] male. Presenting in no acute distress. SKIN: Warm and dry. HEAD: Normocephalic. EYES: No scleral icterus. No injection or drainage. NECK: Supple, trachea midline. No JVD or lymphadenopathy. CARDIOVASCULAR: Regular rate and rhythm without murmurs, gallops, or rubs. RESPIRATORY: Breath sounds equal bilaterally. No accessory muscle use. GASTROINTESTINAL: Abdomen soft, non-tender, nondistended. MUSCULOSKELETAL: No cyanosis, or edema. BACK: Nontender without obvious deformity. No CVA tenderness. Data Data Last Documented VS Vital Signs Date Time Temp Pulse Resp B/P (MAP) Pulse Ox O2 Delivery O2 Flow Rate FiO2 09/19/17 21:36 98.7 92 16 146/89 (108) 99 Room Air Orders Orders Ua Includes Microscopic (09/19/17 21:56) Gc And Chlamydia Pcr (09/19/17 21:56) Azithromycin (Zithromax) (09/19/17 22:45) Ceftriaxone Inj (Rocephin Inj) (09/19/17 22:45) Lidocaine 1% Inj (50 Ml) (Xylocaine 1% I (09/19/17 22:45) Urine Culture (09/19/17 22:46) Labs Laboratory Tests Test 09/19/17 22:05 Urine Color YELLOW Urine Turbidity CLEAR Urine pH 5.5 Urine Specific [place] 1.029 Urine Protein TRACE mg/dL Urine Glucose (UA) NEG mg/dL Urine Ketones NEG mg/dL Urine Occult Blood NEG Urine Nitrite NEG Urine Bilirubin NEG Urine Urobilinogen LESS THAN 2.0 MG/DL Urine Leukocyte Esterase SMALL Urine RBC 1 /hpf Urine WBC 16 /hpf Urine Squamous Epithelial Cells <1 /hpf Urine Bacteria OCC /hpf Urine Mucus FEW /lpf MDM Medical Decision Making Medical Screen Exam Complete: Yes Emergency Medical Condition: Yes Interpretation(s) Laboratory Tests Test 09/19/17 22:05 Urine Color YELLOW Urine Turbidity CLEAR Urine pH 5.5 Urine Specific [place] 1.029 Urine Protein TRACE mg/dL Urine Glucose (UA) NEG mg/dL Urine Ketones NEG mg/dL Urine Occult Blood NEG Urine Nitrite NEG Urine Bilirubin NEG Urine Urobilinogen LESS THAN 2.0 MG/DL Urine Leukocyte Esterase SMALL Urine RBC 1 /hpf Urine WBC 16 /hpf Urine Squamous Epithelial Cells <1 /hpf Urine Bacteria OCC /hpf Urine Mucus FEW /lpf Vital Signs Date Time Temp Pulse Resp B/P (MAP) Pulse Ox O2 Delivery O2 Flow Rate FiO2 09/19/17 21:36 98.7 92 16 146/89 (108) 99 Room Air Differential Diagnosis Chlamydia versus gonorrhea versus UTI versus other Narrative Course Patient is a well-appearing 32-year-old male presenting for evaluation of dysuria in discharge from his penis. He has no complaints of testicular pain. Urinalysis with 16 white blood cells. Patient will be treated empirically for chlamydia and gonorrhea, urine cultures pending. Patient was advised to avoid unprotected sexual activity. Patient was advised that he would be notified of findings if they were positive. He will need to notify his sexual partners. Patient also requested a refill of permethrin. He states he was treated for scabies a month ago through the [facility] emergency department. He lost the cream after he treated himself the first time, he states he was told to retreat himself. Patient has no obvious lesions to the skin. Medical records reviewed , patient was in the emergency department on 08/31/17 with similar complaints. At that time he tested negative for chlamydia and gonorrhea. He was discharged on Keflex and doxycycline. Urine culture was negative after 48 hours. Patient is encouraged to follow-up with a primary doctor at the [facility] or at the health department for further STD screenings. Diagnosis Primary Impression: Dysuria Additional Impressions: Pyuria Potential exposure to STD Referrals: [facility]. Patient Instructions: General Instructions, Sexually Transmitted Diseases (ED) , Urinary Tract Infection in Men (DC) Additional Instructions: Avoid unprotected sexual activity to prevent transmission of sexually transmitted diseases. If you are positive for chlamydia and/or gonorrhea you will be notified. He will need to notify sexual partners. Partners will need to be treated if you tested positive. Return to emergency department for any new or worsening symptoms Follow up with [facility] or at the [facility] Med/Other Pt SpecificInfo: Prescription(s) given Scripts Permethrin Topical 5% (Permethrin Topical 5%) 5% Cream 1 APPLIC TOPICAL ONCE for Scabies, #1 TUBE 0 Refills Prov: Nora Rice 09/19/17 Ciprofloxacin (Ciprofloxacin) 500 Mg Tab 500 MG PO BID for Infection for 3 Days, #6 TAB 0 Refills Prov: Nora Rice 09/19/17 Disposition: 01 DISCHARGE HOME Condition: Stable Nora Rice Sep 19, 2017 22:55
[2017-09-19] MEDS ORDERED: ZANA2CAP PO (23:04)
[2017-09-19] MEDS ORDERED: HYDR-3583 PO (23:04)
== END 2017-09-19 23:35 | disposition home or self-care (01) ==
LOC: NEPD 21:11
DX: R30.0 Dysuria (principal); N39.0 Urinary tract infection, site not specified; Z72.0 Tobacco use
CPT/HCPCS: 81001; 87086; 87491; 87591; 96372; 99283; J0696

== ENCOUNTER 2017-09-24 19:12 | Emergency (ER) | payer OTHER ==
[~2017-09-24 19:12] MED LIST changes: -CEPH-460 PO; -DOXY100T PO; +HYDR-3583 PO; +ZANA2CAP PO
[2017-09-24 19:15] VITALS: BP 150/79; PULSE 84; RESP 20; TEMP 98.6; O2SAT 99
[2017-09-24] MEDS ORDERED: PERM5CRE11 TOPICAL (23:54)
== END 2017-09-24 21:25 | disposition left against medical advice (07) ==
LOC: NED 19:12
DX: L98.9 Disorder of the skin and subcutaneous tissue, unspecified (principal)
CPT/HCPCS: 99281

== ENCOUNTER 2017-09-24 23:26 | Emergency (ER) | payer OTHER ==
[2017-09-24 23:32] VITALS: BP 150/79; PULSE 84; RESP 20; TEMP 98.6; O2SAT 99
[2017-09-24] MEDS ORDERED: PERM5CRE11 TOPICAL (23:54)
--- NOTE | 2017-09-24 23:58 | PD ---
HPI Chief Complaint: Skin Problem Time Seen by Provider: 23:48 Travel History International Travel<30 days: No Contact w/Intl Traveler<30days: No Traveled to known affect area: No History of Present Illness HPI 32-year-old male presents for evaluation of generalized pruritus. Symptoms started 2 days ago. He reports that he has had similar symptoms intermittently for the past several months and he believes that he has recurrent scabies infestations. In the past she has been prescribed permethrin which he says helps with the pruritus develops. He is also requesting Bactrim for the same. He denies any actual rash. He denies any abdominal pain, cough or congestion, change in living environment. He was here twice earlier today and left without being seen. This is his third visit here today. He is a frequent visitor to this emergency department for minor complaints. PFSH Past Medical History Hx Anticoagulant Therapy: No Cardiovascular Problems: No Chemotherapy: No Cerebrovascular Accident: No Diabetes: No Diminished Hearing: No Musculoskeletal: Yes (herniated disc, chronic back pain) Respiratory: No Immunizations Current: Yes Past Surgical History Surgical History: No Previous Surgery Social History Alcohol Use: No Tobacco Use: No Substance Use: No Allergies-Medications (Allergen,Severity, Reaction): Coded Allergies: No Known Allergies (Unverified Allergy, Unknown, 09/24/17) Reported Meds & Prescriptions Reported Meds & Active Scripts Active Elimite Topical (Permethrin) 5% Cream 1 Applic TOPICAL ONCE Reported Zanaflex (Tizanidine HCl) 2 Mg Cap 2 Mg PO PRN Hydrocodone-Acetaminophen 10-325 mg Tab 1 Tab PO Q4H PRN Review of Systems Except as stated in HPI: all other systems reviewed are Neg Physical Exam Narrative GENERAL: Well-developed well-nourished male in no acute distress SKIN: Warm and dry. HEAD: Atraumatic. Normocephalic. EYES: Pupils equal and round. No scleral icterus. No injection or drainage. ENT: No nasal bleeding or discharge. Mucous membranes pink and moist. NECK: Trachea midline. No JVD. CARDIOVASCULAR: Regular rate and rhythm. No murmur appreciated. RESPIRATORY: No accessory muscle use. Clear to auscultation. Breath sounds equal bilaterally. GASTROINTESTINAL: Abdomen soft, non-tender, nondistended. Hepatic and splenic margins not palpable. Data Data Last Documented VS Vital Signs Date Time Temp Pulse Resp B/P (MAP) Pulse Ox O2 Delivery O2 Flow Rate FiO2 09/24/17 23:32 98.6 84 20 150/79 (102) 99 MDM Medical Decision Making Medical Screen Exam Complete: Yes Emergency Medical Condition: Yes Medical Record Reviewed: Yes Differential Diagnosis Pruritus, psychosis, scabies, elevated bilirubin, contact dermatitis Narrative Course 32-year-old male presents with intermittent itching essentially for several months, he believes that he is having recurrent scabies infestations. There is no clinical evidence of scabies. He does report that he has had improvement in his symptoms with the use of permethrin in the past, there may be a psychiatric component to his symptoms. A permethrin prescription will be prescribed however he is also requesting Bactrim and I see no indication for Bactrim treatment. He is quite hostile when informed that he does not require Bactrim prescription and he refuses to listen to any additional counseling at this time. 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 Return for any emergent medical conditions. Med/Other Pt SpecificInfo: Prescription(s) given Scripts Permethrin Topical (Elimite Topical) 5% Cream 1 APPLIC TOPICAL ONCE for Scabies, #1 TUBE 0 Refills Prov: Abdulaziz Starr MD 09/24/17 Disposition: 01 DISCHARGE HOME Condition: Stable Rd Card Sep 24, 2017 23:58
== END 2017-09-25 01:10 | disposition home or self-care (01) ==
LOC: NEPD 23:26
DX: L29.9 Pruritus, unspecified (principal)
CPT/HCPCS: 99283

== ENCOUNTER 2017-10-05 20:51 | Emergency (ER) | payer OTHER ==
[~2017-10-05] VITALS: Ht 170.2 cm; Wt 150.0 kg
[~2017-10-05 20:51] MED LIST changes: +PERM5CRE11 TOPICAL
[2017-10-05 21:49] VITALS: BP 148/80; PULSE 80; RESP 18; TEMP 97.3; O2SAT 98
--- NOTE | 2017-10-05 23:33 | PD ---
HPI Chief Complaint: Skin Problem Time Seen by Provider: 23:21 Travel History International Travel<30 days: No Contact w/Intl Traveler<30days: No Traveled to known affect area: No History of Present Illness HPI 32-year-old black male presents emergency department with complaints of pruritic and keeps getting reinfected. He was just seen in the ER earlier this past week and was given pyrethrin. He states that he typically also has to take Bactrim to have this resolved. He denies any recent illness. No shortness of breath or wheezing. No nausea vomiting. No abdominal pain or urinary symptoms. Symptoms are moderate. Alleviated by pyrethrin and Bactrim. History Past Medical Histgory Medical History: Denies Significant Hx Tetanus Vaccination: < 5 Years Hx Chemotherapy: No Past Surgical History Surgical History: No Previous Surgery Social History Alcohol Use: No Tobacco Use: No Allergies-Medications (Allergen,Severity, Reaction): Coded Allergies: No Known Allergies (Unverified Allergy, Unknown, 10/05/17) Reported Meds & Prescriptions Reported Meds & Active Scripts Active Elimite Topical (Permethrin) 5% Cream 1 Applic TOPICAL ONCE Reported Zanaflex (Tizanidine HCl) 2 Mg Cap 2 Mg PO PRN Hydrocodone-Acetaminophen 10-325 mg Tab 1 Tab PO Q4H PRN Review of Systems General / Constitutional: No: Fever Eyes: No: Visual changes HENT: No: Headaches Cardiovascular: No: Chest Pain or Discomfort Respiratory: No: Shortness of Breath Gastrointestinal: No: Abdominal Pain Genitourinary: No: Dysuria Musculoskeletal: No: Pain Skin: Positive Rash, Positive Itching Neurologic: No: Weakness Psychiatric: No: Depression Endocrine: No: Polydipsia Hematologic/Lymphatic: No: Easy Bruising Physical Exam Narrative GENERAL: Well-developed, well-nourished in no acute distress. Nontoxic appearing. HEAD: Normocephalic, atraumatic. EYES: Pupils equal round and reactive. Extraocular motions intact. No scleral icterus. No injection or drainage. ENT: TMs clear without erythema. The external auditory canals clear. Nose: clear . Posterior pharynx is pink and moist. No tonsillar edema or exudate. Uvula midline. Airway patent. NECK: Trachea midline.Supple, nontender, moves head freely. No central bony tenderness or spasm. CARDIOVASCULAR: Regular rate and rhythm without murmurs, gallops, or rubs. RESPIRATORY: Clear to auscultation. Breath sounds equal bilaterally. No wheezes , rales, or rhonchi. GASTROINTESTINAL: Abdomen soft, non-tender, nondistended. No hepato-splenomegaly , or palpable masses. No guarding. EXTREMITIES: No clubbing, cyanosis, or edema. No joint tenderness, effusion, or edema noted. BACK: Nontender without deformity or crepitance. No flank tenderness. Skin: No evidence of scabies. No tracking lesions or lesions between the fingers or on the creases. Data Data Last Documented VS Vital Signs Date Time Temp Pulse Resp B/P (MAP) Pulse Ox O2 Delivery O2 Flow Rate FiO2 10/05/17 21:49 97.3 80 18 148/80 (102) 98 MDM Medical Screen Exam Complete: Yes Emergency Medical Condition: No Differential Diagnosis MDM: High Differential diagnoses: Abscess, folliculitis, cellulitis, lymphangitis, abrasion, contact dermatitis, scabies Narrative Course A medical screening exam was performed: At the time of evaluation the presenting medical condition was determined not to be of an emergent nature. The patient was given the option of receiving additional care, but declined. Patient was given options for additional community resources from which to obtain care. The Patient Has Been advised to seek medical attention for their presenting complaint. The patient has been advised to return to the ER at any time if an emergent condition develops. I have reviewed the patient's medical record from his last visit as well as several other visits. He does not have any active scabies on my exam. I do not believe he has any emergent medical conditions. There is no emergent treatment that I can offer the patient today. He is advised to take over-the- counter Benadryl for itching and follow-up with a primary care doctor. Primary Impression: Encounter for medical screening examination Condition: Giacomo Up October 05, 2017 23:32
[2017-10-07] MEDS ORDERED: ACYC800T PO (19:40)
[2017-10-07] MEDS ORDERED: KETO2CRE TOPICAL (19:40)
== END 2017-10-06 00:13 | disposition left against medical advice (07) ==
LOC: NEPD 20:51
DX: L29.9 Pruritus, unspecified (principal)
CPT/HCPCS: 99281

== ENCOUNTER 2017-10-07 12:21 | Emergency (ER) | payer OTHER ==
[~2017-10-07] VITALS: Ht 170.2 cm; Wt 140.0 kg
[2017-10-07 12:37] VITALS: BP 125/62; PULSE 68; RESP 18; TEMP 98.2; O2SAT 99
--- NOTE | 2017-10-07 15:45 | PD ---
HPI Chief Complaint: Edema Time Seen by Provider: 14:53 Travel History International Travel<30 days: No Contact w/Intl Traveler<30days: No Traveled to known affect area: No History of Present Illness HPI 32-year-old male presents to emergency department with complaint of bilateral lower leg edema 1 month. Says his feet swell up every now and then, and they are swollen now. He also states that he had a syncopal episode today while he was parked in his car. He describes his syncopal episode as "falling asleep in his car without knowing and then waking up." He denies chest pain, shortness of breath, abdominal pain, nausea, vomiting, change in urine or stool. Denies change in mentation, confusion, disorientation, lightheadedness, dizziness, headache. Denies history of diabetes or cardiac history. Denies sores or injury to his feet. Says he is homeless and he sleeps in his car in a more reclined position and that is when his feet are more swollen. When he is able to get a hotel room every 3 or 4 days and sleep in a bed he says his feet go down and are not swollen. Worse with sleeping in his car. Better when he sleeps in a bed. Better when he elevates his legs. Describes as a pressure buildup in his feet when they are really swollen. Has not taken any medications or try any treatments to alleviate his symptoms. Symptoms are mild to moderate in severity. No known allergies. Primary care provider is Dr. Josefina Lowe. Denies significant past medical history. Has no other medical complaints. No other modifying factors or associated signs and symptoms per [facility] Past Medical History Hx Anticoagulant Therapy: No Anxiety: Yes Cardiovascular Problems: No Chemotherapy: No Cerebrovascular Accident: No Diabetes: No Diminished Hearing: No Herniated Disk: Yes Musculoskeletal: Yes (herniated disc, chronic back pain) Respiratory: No Immunizations Current: Yes Social History Alcohol Use: No Tobacco Use: Yes Substance Use: No Allergies-Medications (Allergen,Severity, Reaction): Coded Allergies: No Known Allergies (Unverified Allergy, Unknown, 10/05/17) Reported Meds & Prescriptions Reported Meds & Active Scripts Active Reported Hydrocodone-Acetaminophen 10-325 mg Tab 1 Tab PO Q4H PRN Review of Systems Except as stated in HPI: all other systems reviewed are Neg Physical Exam Narrative GENERAL: Well-nourished, well-developed black male patient, in no acute distress SKIN: Warm and dry. HEAD: Atraumatic. Normocephalic. EYES: Pupils equal and round. No scleral icterus. No injection or drainage. ENT: Mucosa pink and moist. Airway patent. NECK: Trachea midline. CARDIOVASCULAR: Regular rate and rhythm. No murmur appreciated. RESPIRATORY: No accessory muscle use. Breath sounds clear and equal bilaterally. No retractions or tachypnea. GASTROINTESTINAL: Obese. Abdomen soft, non-tender, nondistended. Bowel sounds active 4 quadrants. Nonrigid. No guarding. MUSCULOSKELETAL: Bilateral lower legs and ankles with approximately 1+ pitting edema. Bilateral lower extremities are supple and nontender 2+ pedal pulses and sensory intact and without erythema. No obvious deformities. No clubbing. No cyanosis. No edema. NEUROLOGICAL: Awake and alert. Oriented 3. No obvious cranial nerve deficits. Motor grossly within normal limits. Normal speech. PSYCHIATRIC: Appropriate mood and affect; insight and judgment normal. Data Data Last Documented VS Vital Signs Date Time Temp Pulse Resp B/P (MAP) Pulse Ox O2 Delivery O2 Flow Rate FiO2 10/07/17 12:37 98.2 68 18 125/62 (83) 99 Orders Orders Electrocardiogram (10/07/17 15:09) Complete Blood Count With Diff (10/07/17 15:09) Comprehensive Metabolic Panel (10/07/17 15:09) Orthostatic Vital Signs (10/07/17 15:09) Labs Laboratory Tests Test 10/07/17 15:35 White Blood Count 12.2 TH/MM3 Red Blood Count 4.52 MIL/MM3 Hemoglobin 14.1 GM/DL Hematocrit 41.6 % Mean Corpuscular Volume 92.0 FL Mean Corpuscular Hemoglobin 31.3 PG Mean Corpuscular Hemoglobin Concent 34.0 % Red Cell Distribution Width 13.5 % Platelet Count 335 TH/MM3 Mean Platelet Volume 7.1 FL Neutrophils (%) (Auto) 58.5 % Lymphocytes (%) (Auto) 29.9 % Monocytes (%) (Auto) 8.4 % Eosinophils (%) (Auto) 2.3 % Basophils (%) (Auto) 0.9 % Neutrophils # (Auto) 7.1 TH/MM3 Lymphocytes # (Auto) 3.7 TH/MM3 Monocytes # (Auto) 1.0 TH/MM3 Eosinophils # (Auto) 0.3 TH/MM3 Basophils # (Auto) 0.1 TH/MM3 CBC Comment DIFF FINAL Differential Comment Blood Urea Nitrogen 10 MG/DL Creatinine 0.99 MG/DL Random Glucose 79 MG/DL Total Protein 8.0 GM/DL Albumin 3.7 GM/DL Calcium Level 9.4 MG/DL Alkaline Phosphatase 69 U/L Aspartate Amino Transf (AST/SGOT) 23 U/L Alanine Aminotransferase (ALT/SGPT) 35 U/L Total Bilirubin 0.6 MG/DL Sodium Level 138 MEQ/L Potassium Level 4.2 MEQ/L Chloride Level 105 MEQ/L Carbon Dioxide Level 25.7 MEQ/L Anion Gap 7 MEQ/L Estimat Glomerular Filtration Rate 106 ML/MIN [facility] Medical Decision Making Medical Screen Exam Complete: Yes Emergency Medical Condition: Yes Medical Record Reviewed: Yes Differential Diagnosis Edema, syncope, orthostatic hypotension, diabetes, kidney disease, hypertension Narrative Course 32-year-old male with complaint of bilateral lower extremity edema and a possible syncopal episode today. CBC, CMP, orthostatics, EKG ordered. 1539: EKG with NSR; without ST elevation or depression; reviewed by Dr. Haas. 1800: CBC, CMP unremarkable. 1810: Patient is not in his room to perform orthostatic vital signs and has left before being discharged. I do not feel that the orthostatics we will change his plan of care. Left without discharge instructions. Diagnosis Primary Impression: Bilateral lower extremity edema Additional Impression: Syncopal episodes Qualified Codes: R55 - Syncope and collapse Referrals: [facility] Primary Care Physician Patient Instructions: General Instructions, Leg Edema (ED), Syncope (ED) Additional Instructions: Elevate legs to reduce edema Follow-up with primary care provider Return to the emergency department immediately with worsening of symptoms Med/Other Pt SpecificInfo: No Change to Meds, No Meds Exist/No RX given Disposition: 01 DISCHARGE HOME Condition: Stable Madeline Blackman October 07, 2017 15:45
[2017-10-07 16:09] LABS: ALBUMIN 3.7 GM/DL (3.4-5.0); AST (GOT) 23 U/L (15-37); BICARBONATE 25.7 MEQ/L (21.0-32.0); BLOOD UREA NITROGEN 10 MG/DL (7-18); CALCIUM 9.4 MG/DL (8.5-10.1); CHLORIDE 105 MEQ/L (98-107); CREATININE 0.99 MG/DL (0.60-1.30); GLOMERULAR FILTRATION RATE 106 ML/MIN (>89); GLUCOSE,RANDOM 79 MG/DL (74-106); SODIUM (NA) 138 MEQ/L (136-145)
[2017-10-07 16:10] LABS: ALT (GPT) 35 U/L (12-78)
[2017-10-07 16:12] LABS: ALKALINE PHOSPHATASE 69 U/L (45-117); TOTAL BILIRUBIN ADULT 0.6 MG/DL (0.2-1.0)
[2017-10-07 16:16] LABS: AUTOMATED NEUTROPHIL # 7.1 TH/MM3 (1.8-7.7); BASOPHIL # 0.1 TH/MM3 (0-0.2); BASOPHIL % 0.9 % (0.0-2.0); EOSINOPHIL # 0.3 TH/MM3 (0-0.4); EOSINOPHIL % 2.3 % (0.0-4.0); HEMATOCRIT 41.6 % (39.0-51.0); HEMOGLOBIN 14.1 GM/DL (13.0-17.0); LYMPH % 29.9 % (9.0-44.0); LYMPHOCYTE # 3.7 TH/MM3 (1.0-4.8); MEAN CORPUSCULAR HEMOGLOBIN 31.3 PG (27.0-34.0); MEAN PLATELET VOLUME 7.1 FL (7.0-11.0); MONO % 8.4 % (0.0-8.0); NEUT % 58.5 % (16.0-70.0); PLATELET COUNT 335 TH/MM3 (150-450); RED BLOOD COUNT 4.52 MIL/MM3 (4.50-5.90); RED CELL DISTRIBUTION WIDTH 13.5 % (11.6-17.2); WHITE BLOOD COUNT 12.2 TH/MM3 (4.0-11.0)
[2017-10-07] MEDS ORDERED: ACYC800T PO (19:40)
[2017-10-07] MEDS ORDERED: KETO2CRE TOPICAL (19:40)
--- NOTE | 2017-10-09 08:43 | EKG ---
Date Performed: 10/07/2017 Time Performed: 15:18:53 PTAGE: 32 years EKG: Sinus rhythm NORMAL ECG PREVIOUS TRACING : 11/06/2016 14.40 DOCTOR: Nelly Harrington Interpretating Date/Time 10/09/2017 08:40:21
== END 2017-10-07 19:18 | disposition home or self-care (01) ==
LOC: NEPD 12:21
DX: R60.0 Localized edema (principal); R55 Syncope and collapse; F41.9 Anxiety disorder, unspecified; Z72.0 Tobacco use; Z59.0 Homelessness
CPT/HCPCS: 80053; 85025; 93005

== ENCOUNTER 2017-10-07 18:34 | Emergency (ER) | payer OTHER ==
[2017-10-07 18:56] VITALS: BP 124/66; PULSE 66; RESP 20; TEMP 98.3; O2SAT 98
[2017-10-07] MEDS ORDERED: KETO2CRE TOPICAL (19:40)
[2017-10-07] MEDS ORDERED: ACYC800T PO (19:40)
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
[2017-10-07 19:58] LABS: BILIRUBIN, URINE NEG (NEG); BLOOD, URINE NEG (NEG); GLUCOSE,URINE NEG (NEG); KETONE, URINE NEG (NEG); NITRITE,URINE NEG (NEG); URINE COLOR YELLOW (YELLW/STRAW); URINE LEUKOCYTE ESTERASE NEG (NEG)
[2017-10-07 20:05] LABS: SQUAMOUS EPITHELIAL CELL URINE 0-5 /hpf (0-5)
[2017-10-07 20:06] LABS: RBC, URINE 0-3 /hpf (0-3); WBC, URINE 15-19 /hpf (0-5)
[2017-10-07] MEDS ORDERED: LIDOCAINE HCL 1% PF 10 ML VIAL ONE (20:27)
[2017-10-07] MEDS ORDERED: LIDOCAINE HCL 1% 20 ML VIAL ONE (20:28)
[2017-10-07] MEDS ORDERED: LIDOCAINE HCL 1% 50 ML VIAL XX ONE (20:30)
[2017-10-07] MEDS ORDERED: cefTRIAXone 250 MG VIAL IM ONE (20:30)
[2017-10-07] MEDS ORDERED: AZITHROMYCIN PWD FOR SUSP 1 GM PACKET PO ONE (20:30)
== END 2017-10-07 21:14 | disposition home or self-care (01) ==
LOC: PHED 18:34 → PHEFT 21:14
DX: R21 Rash and other nonspecific skin eruption (principal); B35.4 Tinea corporis; N34.2 Other urethritis; F41.9 Anxiety disorder, unspecified; F17.210 Nicotine dependence, cigarettes, uncomplicated; Z79.899 Other long term (current) drug therapy
CPT/HCPCS: 81001; 87086; 87491; 87591; 96372; 99283; J0696

== ENCOUNTER 2017-10-19 23:43 | Emergency (ER) | payer OTHER ==
[~2017-10-19 23:43] MED LIST changes: +ACYC800T PO; -HYDR-3583 PO; +KETO2CRE TOPICAL; -PERM5CRE11 TOPICAL; -ZANA2CAP PO
== END 2017-10-20 00:44 | disposition left against medical advice (07) ==
LOC: NED 23:43
DX: R50.9 Fever, unspecified (principal)
CPT/HCPCS: 99281

== ENCOUNTER 2017-10-27 03:11 | Emergency (ER) | payer OTHER ==
[~2017-10-27] VITALS: Ht 175.3 cm; Wt 105.0 kg
[2017-10-27 03:17] VITALS: BP 145/70; PULSE 78; RESP 18; TEMP 98.2; O2SAT 100
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
[2017-10-27] MEDS ORDERED: diphenhydrAMINE HCL 50 MG CAP PO ONE (03:30)
--- NOTE | 2017-10-27 04:04 | RADRPT ---
EXAM DATE: 10/27/2017 3:58 AM EDT AGE/SEX: 32 years / Male INDICATIONS: Chest pain. CLINICAL DATA: This is the patient's initial encounter. Patient reports that signs and symptoms have been present for 2 days and indicates a pain score of 7/10. MEDICAL/SURGICAL HISTORY: None. None. COMPARISON: [facility] [place], [place], CHEST PA & LAT, 05/01/2017. . FINDINGS: The lungs are clear without infiltrate, nodule, or mass. There is no appreciable pleural effusion for technique. Heart and mediastinum are unremarkable. CONCLUSION: No acute cardiopulmonary disease. Electronically signed by: Josef Casper MD 10/27/2017 4:03 AM EDT
--- NOTE | 2017-10-27 04:04 | RADRPT ---
EXAM DATE: 10/27/2017 3:55 AM EDT AGE/SEX: 32 years / Male INDICATIONS: Proximal right humerus pain. CLINICAL DATA: This is the patient's initial encounter. Patient reports that signs and symptoms have been present for 2 days and indicates a pain score of 8/10. MEDICAL/SURGICAL HISTORY: None. None. COMPARISON: No prior exams available for comparison. FINDINGS: No definite fractures, or dislocations are identified. No definite lytic or sclerotic les ion is seen. CONCLUSION: Unremarkable study. Electronically signed by: Josef Casper MD 10/27/2017 4:03 AM EDT
--- NOTE | 2017-10-27 04:05 | RADRPT ---
EXAM DATE: 10/27/2017 3:57 AM EDT AGE/SEX: 32 years / Male INDICATIONS: Proximal left humerus pain. CLINICAL DATA: This is the patient's initial encounter. Patient reports that signs and symptoms have been present for 2 days and indicates a pain score of 8/10. MEDICAL/SURGICAL HISTORY: None. None. COMPARISON: No prior exams available for comparison. FINDINGS: No definite fractures, or dislocations are identified. No definite lytic or sclerotic les ion is seen. CONCLUSION: Unremarkable study. Electronically signed by: Josef Casper MD 10/27/2017 4:04 AM EDT
--- NOTE | 2017-10-27 04:05 | RADRPT ---
EXAM DATE: 10/27/2017 4:00 AM EDT AGE/SEX: 32 years / Male INDICATIONS: Left lower quadrant abdominal pain. CLINICAL DATA: This is the patient's initial encounter. Patient reports that signs and symptoms have been present for 2 days and indicates a pain score of 7/10. MEDICAL/SURGICAL HISTORY: None. None. COMPARISON: No prior exams available for comparison. FINDINGS: The bowel gas is nonspecific. There are no signs of obstruction or free air for technique. No definite calcified stones are identified for technique. CONCLUSION: Unremarkable study. Electronically signed by: Josef Casper MD 10/27/2017 4:04 AM EDT
[2017-10-27] MEDS ORDERED: PERM5CRE TOPICAL (04:11)
[2017-10-28] MEDS ORDERED: BACT800T5 PO (23:18)
== END 2017-10-27 06:05 | disposition home or self-care (01) ==
LOC: NEPC 03:11
DX: S40.862A Insect bite (nonvenomous) of left upper arm, initial encounter (principal); S40.861A Insect bite (nonvenomous) of right upper arm, initial encounter; F17.210 Nicotine dependence, cigarettes, uncomplicated; W57.XXXA Bitten or stung by nonvenomous insect and other nonvenomous arthropods, initial encounter
CPT/HCPCS: 71045; 73060; 74018; 99284; Q0163

== ENCOUNTER 2017-10-28 20:41 | Emergency (ER) | payer OTHER ==
[~2017-10-28] VITALS: Ht 175.3 cm; Wt 105.0 kg
[~2017-10-28 20:41] MED LIST changes: +PERM5CRE TOPICAL
[2017-10-28 21:30] VITALS: BP 161/71; PULSE 78; RESP 20; TEMP 98.1; O2SAT 98
[2017-10-28] MEDS ORDERED: cefTRIAXone 250 MG VIAL IM ONE (21:45)
[2017-10-28] MEDS ORDERED: AZITHROMYCIN PWD FOR SUSP 1 GM PACKET PO ONE (21:45)
[2017-10-28] MEDS ORDERED: LIDOCAINE HCL 1% 50 ML VIAL XX ONE (21:45)
--- NOTE | 2017-10-28 21:48 | PD ---
HPI Chief Complaint: Complaint Time Seen by Provider: 21:37 Travel History International Travel<30 days: No Contact w/Intl Traveler<30days: No Traveled to known affect area: No History of Present Illness HPI 32yo M with PMH of STI here with c/o penile discharge and dysuria for 2-3 days. Denies any testicular pain, penile rash, fever, chest pain, sob, n/v, abdominal pain, focal weakness or numbness. Pt was just here yesterday but said he was only allowed one complaint. Pt has been here multiple times this month. PFSH Past Medical History Hx Anticoagulant Therapy: No Anxiety: Yes Cardiovascular Problems: No Chemotherapy: No Cerebrovascular Accident: No Diabetes: No Diminished Hearing: No Herniated Disk: Yes Musculoskeletal: Yes (herniated disc, chronic back pain) Respiratory: No Immunizations Current: Yes Tetanus Vaccination: < 5 Years Influenza Vaccination: No Past Surgical History Surgical History: No Previous Surgery Social History Alcohol Use: No Tobacco Use: Yes (1 or 2 cigs day) Substance Use: No Allergies-Medications (Allergen,Severity, Reaction): Coded Allergies: No Known Allergies (Unverified Allergy, Unknown, 10/28/17) Reported Meds & Prescriptions Reported Meds & Active Scripts Active Review of Systems Except as stated in HPI: all other systems reviewed are Neg Physical Exam Narrative GENERAL: 32yo M not in distress. SKIN: Focused skin assessment warm/dry. HEAD: Atraumatic. Normocephalic. EYES: Pupils equal and round. No scleral icterus. No injection or drainage. ENT: No nasal bleeding or discharge. Mucous membranes pink and moist. NECK: Trachea midline. No JVD. CARDIOVASCULAR: Regular rate and rhythm. No murmur appreciated. RESPIRATORY: No accessory muscle use. Clear to auscultation. Breath sounds equal bilaterally. GASTROINTESTINAL: Abdomen soft, non-tender, nondistended. : No penile discharge or penile rash noted. No testicular ttp. No hernia. MUSCULOSKELETAL: No obvious deformities. No clubbing. No cyanosis. No edema. NEUROLOGICAL: Awake and alert. No obvious cranial nerve deficits. Motor grossly within normal limits. Normal speech. PSYCHIATRIC: Appropriate mood and affect; insight and judgment normal. Data Data Last Documented VS Vital Signs Date Time Temp Pulse Resp B/P (MAP) Pulse Ox O2 Delivery O2 Flow Rate FiO2 10/28/17 21:30 98.1 78 20 161/71 (101) 98 Orders Orders Urinalysis - C+S If Indicated (10/28/17 21:41) Gc And Chlamydia Pcr (10/28/17 21:41) Azithromycin Powd Pack (Zithromax Powd P (10/28/17 21:45) Ceftriaxone Inj (Rocephin Inj) (10/28/17 21:45) Lidocaine 1% Inj (50 Ml) (Xylocaine 1% I (10/28/17 21:45) Urine Culture (10/28/17 21:57) Labs Laboratory Tests Test 10/28/17 21:57 Urine Color YELLOW Urine Turbidity HAZY Urine pH 6.0 Urine Specific [place] 1.034 Urine Protein 30 mg/dL Urine Glucose (UA) NEG mg/dL Urine Ketones NEG mg/dL Urine Occult Blood NEG Urine Nitrite NEG Urine Bilirubin NEG Urine Urobilinogen 2.0 MG/DL Urine Leukocyte Esterase MOD Urine RBC 2 /hpf Urine WBC 41 /hpf Urine Squamous Epithelial Cells 2 /hpf Urine Calcium Oxalate Crystals MANY /hpf Urine Mucus FEW /lpf Microscopic Urinalysis Comment CULTURE INDICATED MDM Medical Decision Making Medical Screen Exam Complete: Yes Emergency Medical Condition: Yes Differential Diagnosis STI vs. UTI Narrative Course 32yo M here with c/o dysuria and penile discharge for a few days. He is very well appearing and no other complaints. Pt empirically given azithromycin and ceftriaxone. UA showed WBC 41 which may be from penile discharge but will cover with antibiotics for UTI as well. Return precautions given. Diagnosis Primary Impression: STI (sexually transmitted infection) Additional Impression: UTI (urinary tract infection) Patient Instructions: General Instructions Departure Forms: Tests/Procedures Additional Instructions: Please follow up with your primary care physician in 2-3 days. Return to the ED if symptoms worsen. Med/Other Pt SpecificInfo: Prescription(s) given Scripts Sulfamethoxazole-Trimethoprim (Bactrim DS) 800-160 Mg Tab 1 TAB PO BID for Infection, #14 TAB 0 Refills Prov: Rhona Hyde DO 10/28/17 Disposition: 01 DISCHARGE HOME Condition: Stable Rhona Hyde DO October 28, 2017 21:48
[2017-10-28 22:36] LABS: BILIRUBIN, URINE NEG (NEG); BLOOD, URINE NEG (NEG); CALCIUM OXALATE CRYSTALS,URINE MANY /hpf; GLUCOSE,URINE NEG (NEG); KETONE, URINE NEG (NEG); MUCUS URINE FEW /lpf (OCC); NITRITE,URINE NEG (NEG); SQUAMOUS EPITHELIAL CELL URINE 2 /hpf (0-5); URINE COLOR YELLOW (YELLW/STRAW); URINE LEUKOCYTE ESTERASE MOD (NEG)
[2017-10-28] MEDS ORDERED: BACT800T5 PO (23:18)
== END 2017-10-28 23:46 | disposition home or self-care (01) ==
LOC: NEPD 20:41
DX: A64 Unspecified sexually transmitted disease (principal); N39.0 Urinary tract infection, site not specified; F17.210 Nicotine dependence, cigarettes, uncomplicated
CPT/HCPCS: 81001; 87086; 87491; 87591; 96372; 99283; J0696